=== PATIENT | female | born 1970 | race Caucasian/White ===

== ENCOUNTER 2016-08-23 07:45 | Emergency (ER) | payer BC ==
[~2016-08-23] VITALS: Ht 167.6 cm; Wt 85.0 kg
[~2016-08-23 07:45] MED LIST: ALBU8.5H3 INH; ASCO500C7 PO; CETI10CA PO; ESCI20TA PO; ESOM40CA PO; HYDR-762 PO; HYDR25CA PO; IBUP-1542 PO; LAMO100T83 PO; LAMO200T18 PO; LAMO25TB2 PO; LORA1TAB PO; PROP10TA6 PO; PROP20TA4 PO; RAMI2.5C36 PO; TIOT18CA IH
[2016-08-23 07:52] VITALS: Ht 167.6 cm; Wt 85.0 kg
[2016-08-23] MEDS ORDERED: FAMOTIDINE 20 MG TAB PO STA (08:08)
[2016-08-23] MEDS ORDERED: ONDANSETRON 4 MG INJ IV STA (08:08)
[2016-08-23] MEDS ORDERED: LIDOCAINE/MYLANTA 40 ML BTL PO STA (08:08)
[2016-08-23] MEDS ORDERED: morphine 4 MG/ML VIAL IV STA (08:08)
--- NOTE | 2016-08-23 08:15 | ERD ---
ER Documentation Chief Complaint Date/Time DATE: 08/23/16 TIME: 08:14 Chief Complaint abdominal pain with diarrhea x 1 week HPI This is a 45-year-old female that presents to the ER with generalized abdominal pain for the last week. Patient states that her abdominal pain began in the lower pelvic area and has now moved up to the epigastric area. Patient states that pain radiates up and down her abdomen. Patient tried taking antiacid however it did not help. Patient states that pain is severe and it woke her up at night. She denies any nausea or vomiting. Patient did have diarrhea however diarrhea has now resolved and states that she has been more constipated. Patient has a past medical history of diverticulosis. She denies any fevers or chills. She denies any urinary frequency or dysuria. ROS 12 point review of systems was done, all negative except per HPI. Medications Home Meds Active Scripts Simethicone* (Anti-Gas/80*) 80 Mg Tab.chew, 80 MG PO Q6H Y for DISTENSION/GAS/ BLOATING for 3 Days, TAB.CHEW Prov:WHITNEY PABLO 08/23/16 Famotidine* (Pepcid*) 20 Mg Tablet, 20 MG PO BID for 4 Days, TAB Prov:SAMYWHITNEY LUGO C 08/23/16 Hydrocodone/Acetaminophen ([place] 5-325 Tablet) 1 Each Tablet, 1 TAB PO Q6H Y for PAIN, #10 TAB Prov:WHITNEY PABLO 08/23/16 Ondansetron Hcl* (Zofran*) 4 Mg Tablet, 4 MG PO Q6H for NAUSEA AND/OR VOMITING, #30 TAB Prov:WHITNEY PABLO 08/23/16 Metronidazole* (Flagyl*) 500 Mg Tablet, 500 MG PO TID for 7 Days, TAB Prov:WHITNEY PABLO C 08/23/16 Ciprofloxacin Hcl* (Ciprofloxacin Hcl*) 500 Mg Tablet, 500 MG PO BID for 7 Days , TAB Prov:WHITNEY PABLO 08/23/16 Lamotrigine* (Lamictal* CHEW) 25 Mg Tab.disper, 25 MG PO DAILY for 30 Days, TAB Prov:MARIAH MARTINEZ MD 10/07/15 Lamotrigine* (Lamictal*) 200 Mg Tablet, 200 MG PO DAILY, #30 TAB Prov:MARIAH MARTINEZ MD 10/07/15 Escitalopram Oxalate* (Lexapro*) 20 Mg Tablet, 40 MG PO DAILY for 30 Days, #30 TAB Prov:MARIAH MARTINEZ MD 10/07/15 Propranolol Hcl* (Propranolol Hcl*) 10 Mg Tablet, 10 MG PO BID for 30 Days, TAB Prov:MARIAH MARTINEZ MD 10/07/15 Ramipril (Ramipril) 2.5 Mg Capsule, 2.5 MG PO DAILY, #30 CAP Prov:MARIAH MARTINEZ MD 10/07/15 Hydrocodone Bit-Acetaminophen* ([place]*) 10-325 Mg Tablet, 1 TAB PO Q6 Y for PAIN , #20 TAB Prov:JULIAN MUIR DO 10/04/15 Lorazepam* (Lorazepam*) 1 Mg Tablet, 1 MG PO BID for ANXIETY, #30 TAB Prov:JULIAN MUIR DO 10/04/15 Ramipril (Ramipril) 2.5 Mg Capsule, 2.5 MG PO DAILY, #30 CAP Prov:JULIAN MUIR DO 10/04/15 Hydroxyzine Pamoate* (Vistaril*) 25 Mg Capsule, 25 MG PO Q8, #10 CAP Prov:MALINI AKINS DO 09/09/15 Albuterol Sulfate* (Proair HFA*) 8.5 Gm Hfa.aer.ad, 2 PUFF INH Q4, #1 INHALER Prov:DONALD GA PA-C 08/16/15 Ibuprofen* (Ibuprofen*) 600 Mg Tablet, 600 MG PO Q6, #20 TAB Prov:ASIA MEDLEY PA-C 03/25/15 Reported Medications Esomeprazole Mag Trihydrate (Nexium) 40 Mg Capsule.dr, 40 MG PO DAILY, CAP 12/06/14 Tiotropium [place]* (Spiriva*) 18 Mcg Cap.w.dev, 1 INH IH DAILY, EA 12/06/14 Ramipril (Ramipril) 2.5 Mg Capsule, 2.5 MG PO DAILY, CAP 12/06/14 Propranolol Hcl* (Propranolol Hcl*) 20 Mg Tablet, 20 MG PO BID, TAB 10/29/14 Lamotrigine* (Lamictal*) 100 Mg Tablet, 200 MG PO DAILY, TAB 10/29/14 Escitalopram Oxalate* (Lexapro*) 20 Mg Tablet, 20 MG PO DAILY, TAB 10/29/14 Cetirizine Hcl* (Zyrtec*) 10 Mg Capsule, 10 MG PO DAILY, TAB 08/10/14 Ascorbic Acid* (Vitamin C*) 500 Mg Capsule.sa, 500 MG PO DAILY 10/09/11 Allergies Allergies: Coded Allergies: Sulfa (Sulfonamide Antibiotics) (Verified Allergy, Intermediate, 11/01/15) sulfamethoxazole (Verified Allergy, Mild, THROAT SWELLING, 11/01/15) Penicillins (Verified Allergy, Unknown, 11/01/15) Uncoded Allergies: PCN, SULFA (Adverse Reaction, Severe, BREATHING IMPAIREMENT, 12/14/14) PMhx/Soc Anesthesia Reaction: No Hx Neurological Disorder: No Hx Respiratory Disorders: No Hx Cardiac Disorders: Yes (HTN, ARRHYTMIA) Hx Psychiatric Problems: Yes (DEPRESSION, ANXIETY) Hx Alcohol Use: No Hx Substance Use: No Hx Tobacco Use: No Physical Exam Vitals Vital Signs Date Time Temp Pulse Resp B/P Pulse Ox O2 Delivery O2 Flow Rate FiO2 08/23/16 09:40 98.0 81 20 144/83 99 Room Air 08/23/16 07:52 97.5 84 20 159/81 100 Physical Exam GENERAL: The patient is well developed and appropriate for usual state of health , in no apparent distress. HEENT: Atraumatic. CHEST: Clear to auscultation bilaterally. There are no rales, wheezes or rhonchi. HEART: Regular rate and rhythm. No murmurs, clicks, rubs or gallops. ABDOMEN: Soft nondistended, patient is tender to palpation in the epigastric area, right upper quadrant, right lower quadrant. Good bowel sounds. No rebound or guarding. No gross peritonitis. No gross organomegaly or masses. No Lee sign or McBurney point tenderness. BACK: No midline or flank tenderness. SKIN: The skin is warm and dry. Result Diagram: 08/23/1628 08/23/1628 Results 24 hrs Laboratory Tests Test 08/23/16 08:28 White Blood Count 13.510^3/ul Red Blood Count 4.6310^6/ul Hemoglobin 14.8g/dl Hematocrit 42.9% Mean Corpuscular Volume 92.7fl Mean Corpuscular Hemoglobin 32.0pg Mean Corpuscular Hemoglobin Concent 34.5g/dl Red Cell Distribution Width 12.8% Platelet Count 05671^3/UL Mean Platelet Volume 9.5fl Neutrophils % 71.7% Lymphocytes % 16.7% Monocytes % 7.6% Eosinophils % 2.7% Basophils % 0.4% Nucleated Red Blood Cells % 0.0/100WBC Neutrophils # 9.710^3/ul Lymphocytes # 2.310^3/ul Monocytes # 1.010^3/ul Eosinophils # 0.410^3/ul Basophils # 0.110^3/ul Nucleated Red Blood Cells # 0.010^3/ul Urine Color LT. YELLOW Urine Clarity CLEAR Urine pH 6.5 Urine Specific [place] 1.010 Urine Ketones NEGATIVE Urine Nitrite NEGATIVE Urine Bilirubin NEGATIVE Urine Urobilinogen 0.2 E.U./dL Urine Leukocyte Esterase NEGATIVE Urine Hemoglobin NEGATIVE Urine Glucose NEGATIVE% Urine Total Protein NEGATIVE Sodium Level 140mmol/L Potassium Level 4.3mmol/L Chloride Level 102mmol/L Carbon Dioxide Level 27mmol/L Anion Gap 15 Blood Urea Nitrogen 7mg/dl Creatinine 0.63mg/dl Glucose Level 105mg/dl Calcium Level 9.1mg/dl Total Bilirubin 0.2mg/dl Direct Bilirubin 0.00mg/dl Indirect Bilirubin 0.2mg/dl Aspartate Amino Transf (AST/SGOT) 20IU/L Alanine Aminotransferase (ALT/SGPT) 30IU/L Alkaline Phosphatase 87IU/L Total Protein 8.0g/dl Albumin 4.7g/dl Globulin 3.30g/dl Albumin/Globulin Ratio 1.42 Lipase 42U/L Current Medications Medications (Trade) Dose Ordered Sig/Anabelle Route PRN Reason Start Time Stop Time Status Last Admin Dose Admin Morphine Sulfate (morphine) 4 mg ONCE STAT IV 08/23/16 08:08 08/23/16 08:10 DC 08/23/16 08:30 Ondansetron HCl (Zofran Inj) 4 mg ONCE STAT IV 08/23/16 08:08 08/23/16 08:10 DC 08/23/16 08:28 Famotidine (Pepcid) 20 mg ONCE STAT PO 08/23/16 08:08 08/23/16 08:10 DC 08/23/16 08:32 Miscellaneous Medication (Gi Cocktail (2)) 40 ml ONCE STAT PO 08/23/16 08:08 08/23/16 08:10 DC 08/23/16 08:32 Procedures/MDM Differential Diagnosis: GERD, gastritis, peptic ulcer disease, pancreatitis, cholecystitis, choledocholithiasis, biliary colic, cholangitis, Gczp-Lcdq-Hrints , ACS/TX, Pnuemonia , appendicitis, hernia, diverticulitis, UTI, constipation, ectopic , ovarian torsion, PID, Mittelschmerz, fibroid. This is a 45- year-old female presents to the ER with nausea vomiting and abdominal pain. Patient does have diverticulitis on CT scan. There is however no evidence of abscess. Patient's abdominal exam is benign with no peritoneal signs. Patient is afebrile and well-appearing. Her vomiting was controlled here in the ER. There is no evidence of electrolyte abnormalities. Patient will be sent home with Cipro, metronidazole, Zofran, [place]. Needs to follow-up with her primary care doctor within 1-2 days return to ER sooner if symptoms worsen. My medical decision making was shared with the patient she understands and agrees with plan. I discussed his case with my supervising physician Dr. Ayers, he agrees with my medical decision making. Departure Diagnosis: Primary Impression: Diverticulitis Condition: Stable WHITNEY PABLO Aug 23, 2016 08:15
[2016-08-23 08:47] LABS: ADD SCAN DIFF NO
[2016-08-23 08:52] LABS: BASOPHIL # 0.1 10^3/ul (0.0-0.1); BASOPHILS % 0.4 % (0.0-2.0); EOSINOPHILS # 0.4 10^3/ul (0.0-0.5); EOSINOPHILS % 2.7 % (0.0-7.0); HEMATOCRIT 42.9 % (37.0-47.0); HEMOGLOBIN 14.8 g/dl (12.0-16.0); LYMPHOCYTES # 2.3 10^3/ul (0.8-2.9); LYMPHOCYTES % 16.7 % (15.0-51.0); MEAN CORPUSCULAR HGB CONC 34.5 g/dl (32.0-37.0); MEAN CORPUSCULAR VOLUME 92.7 fl (82.0-101.0); MEAN PLATELET VOLUME 9.5 fl (7.4-10.4); MONOCYTES % 7.6 % (0.0-11.0); NEUTROPHIL # 9.7 10^3/ul (1.6-7.5); NEUTROPHILS % 71.7 % (39.0-77.0); PLATELET COUNT 304 10^3/UL (140-415); RED BLOOD COUNT 4.63 10^6/ul (4.20-5.40); RED CELL DISTRIBUTION WIDTH 12.8 % (11.5-14.5); WHITE BLOOD COUNT 13.5 10^3/ul (4.8-10.8)
[2016-08-23 08:54] LABS: ADD UMIC NO; URINE BILIRUBIN (Dip) NEGATIVE (NEGATIVE); URINE BLOOD (Dip) NEGATIVE (NEGATIVE); URINE COLOR LT. YELLOW (YELLOW); URINE GLUCOSE (Dip) NEGATIVE (NEGATIVE); URINE KETONES (Dip) NEGATIVE (NEGATIVE); URINE LEUKOCYTE ESTERASE (Dip) NEGATIVE (NEGATIVE); URINE NITRITE (Dip) NEGATIVE (NEGATIVE); URINE TOTAL PROTEIN (Dip) NEGATIVE (NEGATIVE); URINE UROBILINOGEN (Dip) 0.2 E.U./dL (0.1-1.0)
[2016-08-23 08:59] LABS: ALBUMIN 4.7 g/dl (3.3-4.9); POTASSIUM 4.3 mmol/L (3.5-5.1)
--- NOTE | 2016-08-23 09:00 | RADRPT ---
PROCEDURE: CT Abdomen and Pelvis without contrast. CLINICAL INDICATION: Abdominal pain. TECHNIQUE: CT scan of the abdomen and pelvis without contrast was performed on a multidetector hig h-resolution CT scanner. The patient was scanned without intravenous contrast. Coronal and sagittal reformatted images were obtained from the axial source images. Images were reviewed on a high-resol [employer] PACS workstation. One or more of the following dose reduction techniques were used: Automated exposure control, adjustment of the mA and/or kV according to patient size, use of iterative recon struction technique. The total exam CTDI equals 18.51 mGy and the total exam DLP equals 1044.37 mGy -cm. COMPARISON: Correlation with ultrasound from 10/20/2014. FINDINGS: CT abdomen: The lung bases are clear. The heart size is normal, without pericardial thickening or effusion. The liver is normal in size and density without focal mass or intrahepatic biliary dilatation. The spleen is normal in size and homogeneous in density. The stomach is grossly unremarkable. The panc reas as visualized is normal. The gallbladder and biliary tree are unremarkable and there is no kavya dence for biliary dilatation. The adrenal glands are symmetric and normal. No renal calculus or o bstructive uropathy or mass lesion is seen. There is mild bilateral renal pelvis fullness without fr ank hydronephrosis. Inflammatory changes are seen at the inferior pole of the right kidney as descr ibed below. The aorta is of normal caliber. There is no retroperitoneal lymphadenopathy. The yadira hepatis reg ion is clear. The small bowel and mesentery, as visualized, are unremarkable. There is an inflamed diverticulum in the distal ascending colon, near the hepatic flexure (image 81, series 3). There is surrounding peridiverticular fat stranding and inflammatory changes which extend to the inferior po le of the right kidney where there is a 1.1 cm exophytic hypodense lesion likely representing a cyst which appears to also be inflamed. There is no evidence of intraperitoneal free air or abscess. CT pelvis: The small bowel loops situated within the pelvis are unremarkable. The uterus is enlarged measuring 10.3 x 10 and 2 x 8.8 cm and demonstrates diffusely heterogeneous attenuation with some areas of fo katerina calcification. The endometrial canal appears to be displaced anteriorly. The pelvic sidewalls and inguinal regions are clear. The sigmoid colon and rectum are unremarkable. The appendix is norm al. No mass, lymphadenopathy, or free fluid is seen. The surrounding osseous structures are unremarkable. No osteolytic or osteoblastic lesion is detec nico. IMPRESSION: 1. Acute diverticulitis involving the distal ascending colon with inflammatory changes extending to the inferior pole of the right kidney as described above and pictured below, concerning for possibl e associated pyelonephritis. Correlate with urinary analysis. 2. Enlarged, bulbous appearing uterus may be secondary to a large posterior uterine body fibroid wi th cystic change versus adenomyosis. Pelvic MRI with contrast may be useful for further evaluation as clinically indicated. RPTAT: EE .Rocco Flroes MD, MD Date Time Electronically viewed and signed by .Rocco Flores MD, MD on 08/23/2016 09:00 .A/
[2016-08-23 09:01] LABS: BILIRUBIN,INDIRECT 0.2 mg/dl (0-1.1); BILIRUBIN,TOTAL 0.2 mg/dl (0.2-1.3); CREATININE 0.63 mg/dl (0.44-1.00)
[2016-08-23 09:02] LABS: ALBUMIN/GLOBULIN RATIO 1.42; CALCIUM 9.1 mg/dl (8.4-10.2)
[2016-08-23] MEDS ORDERED: CIPR500T4 PO (09:27)
[2016-08-23] MEDS ORDERED: METR500T PO (09:28)
[2016-08-23] MEDS ORDERED: HYDR-906 PO (09:28)
[2016-08-23] MEDS ORDERED: ONDA4TAB8 PO (09:28)
[2016-08-23] MEDS ORDERED: FAMO-18 PO (09:33)
[2016-08-23] MEDS ORDERED: SIME80TA PO (09:33)
[2016-08-23 09:40] VITALS: BP 144/83; PULSE 81; RESP 20; TEMP 98
== END 2016-08-23 09:47 | disposition home or self-care (01) ==
LOC: FTE 07:45
DX: K57.92 Diverticulitis of intestine, part unspecified, without perforation or abscess without bleeding (principal); R10.2 Pelvic and perineal pain; I10 Essential (primary) hypertension
CPT/HCPCS: 36415; 74176; 80053; 81003; 83690; 85025; 96374; 96375; 99285; J2270; J2405; Z7610

== ENCOUNTER 2016-09-04 17:29 | Emergency (ER) | payer MEDICARE, BC ==
[~2016-09-04] VITALS: Wt 80.0 kg
[~2016-09-04 17:29] MED LIST changes: +CIPR500T4 PO; +FAMO-18 PO; +HYDR-906 PO; +METR500T PO; +ONDA4TAB8 PO; +SIME80TA PO
[2016-09-04 18:48] LABS: ADD SCAN DIFF NO
[2016-09-04 18:51] LABS: ADD UMIC NO; URINE BILIRUBIN (Dip) NEGATIVE (NEGATIVE); URINE BLOOD (Dip) NEGATIVE (NEGATIVE); URINE COLOR LT. YELLOW (YELLOW); URINE GLUCOSE (Dip) NEGATIVE (NEGATIVE); URINE KETONES (Dip) NEGATIVE (NEGATIVE); URINE LEUKOCYTE ESTERASE (Dip) NEGATIVE (NEGATIVE); URINE NITRITE (Dip) NEGATIVE (NEGATIVE); URINE TOTAL PROTEIN (Dip) NEGATIVE (NEGATIVE); URINE UROBILINOGEN (Dip) 0.2 E.U./dL (0.1-1.0)
[2016-09-04 18:51] LABS: BASOPHIL # 0.1 10^3/ul (0.0-0.1); BASOPHILS % 0.5 % (0.0-2.0); EOSINOPHILS # 0.3 10^3/ul (0.0-0.5); EOSINOPHILS % 3.6 % (0.0-7.0); HEMATOCRIT 43.1 % (37.0-47.0); HEMOGLOBIN 14.6 g/dl (12.0-16.0); LYMPHOCYTES # 2.4 10^3/ul (0.8-2.9); LYMPHOCYTES % 25.5 % (15.0-51.0); MEAN CORPUSCULAR HGB CONC 33.9 g/dl (32.0-37.0); MEAN CORPUSCULAR VOLUME 94.5 fl (82.0-101.0); MEAN PLATELET VOLUME 9.3 fl (7.4-10.4); MONOCYTE # 0.8 10^3/ul (0.3-0.9); MONOCYTES % 8.3 % (0.0-11.0); NEUTROPHIL # 5.7 10^3/ul (1.6-7.5); NEUTROPHILS % 61.2 % (39.0-77.0); PLATELET COUNT 320 10^3/UL (140-415); RED BLOOD COUNT 4.56 10^6/ul (4.20-5.40); RED CELL DISTRIBUTION WIDTH 12.8 % (11.5-14.5); WHITE BLOOD COUNT 9.3 10^3/ul (4.8-10.8)
[2016-09-04] MEDS ORDERED: SOD CHLORIDE 0.9% 100 ML ONE (18:58)
[2016-09-04] MEDS ORDERED: IOHEXOL 300MG/ML 150 ML BTL ONE (18:58)
[2016-09-04 19:22] LABS: ALBUMIN/GLOBULIN RATIO 1.48; BILIRUBIN,INDIRECT 0.2 mg/dl (0-1.1); BILIRUBIN,TOTAL 0.2 mg/dl (0.2-1.3); CREATININE 0.62 mg/dl (0.44-1.00); TOTAL PROTEIN 6.7 g/dl (6.1-8.1)
[2016-09-04 19:23] LABS: CALCIUM 8.7 mg/dl (8.4-10.2)
[2016-09-04] MEDS ORDERED: ONDANSETRON 4 MG INJ IV STA (20:29)
[2016-09-04] MEDS ORDERED: morphine 10 MG INJ IV ONE (20:30)
--- NOTE | 2016-09-04 21:05 | RADRPT ---
PROCEDURE: CT abdomen and pelvis with contrast. CLINICAL INDICATION: Abdominal pain. TECHNIQUE: CT scan of the abdomen and pelvis with contrast was performed. Coronal and sagittal im ages were also reformatted. 100 cc Omnipaque-300 intravenous contrast was administered without comp lication. Total exam CTDIvol = 18.24 mGy and DLP = 1109.06 mGy-cm. COMPARISON: CT 08/23/2016 FINDINGS: Visualized lower thorax: The lung bases are clear. There is no evidence for pleural effusion. Liver, gallbladder, pancreas and spleen: Normal hepatic contour, attenuation in size. There is no evidence for liver mass or ductal dilatation. The gallbladder is unremarkable. No common bile duct dilatation is evident. The pancreas is normal. The spleen is normal, not enlarged. Adrenal glands and genitourinary system: The adrenal glands are normal bilaterally. The kidneys ar e normal in size, contour and attenuation with no evidence for masses, calculi or hydronephrosis. T he ureters are unremarkable. The urinary bladder shows no abnormality. Enlarged heterogeneous leio myomatous uterus is again noted, the heterogeneous enhancement within the dominant posterior fundal subserosal mass cannot exclude a malignant transformation, the abnormality estimated at 10 x 8 cm. Bilateral ovarian/adnexal cysts are again suggested. There is no evidence of free fluid in the cul- de-sac. Gastrointestinal system: The stomach, small bowel and large intestine are normal in caliber. There is no evidence of obstruction, ileus or inflammation. The appendix and surrounding fat are normal. Diverticular disease of the ascending colon is again noted but there has been interval resolution o f pericolonic inflammatory stranding compared to the previous study consistent with resolved diverti culitis. No new areas of diverticulitis are present and there is no colonic wall thickening to sugg est colitis. Peritoneum, retroperitoneum, vessels and lymph nodes: The abdominal aorta is normal in caliber. Th ere is no evidence for atherosclerotic calcification. Inferior vena cava is normal in caliber. The re is no evidence for adenopathy. The peritoneal cavity is normal with no evidence for ascites. No pneumoperitoneum is present Osseous structures and musculoskeletal system: There is no evidence for acute osseous abnormality o r muscular pathology. No subcutaneous abnormalities are present. RPTAT:HJJR IMPRESSION: 1. Interval resolution of distal ascending colonic segment diverticulitis as compared to the study of 08/23/2016, diffuse colonic diverticular disease is again noted without acute intra-abdominal or intrapelvic pathology. 2. Enlarged leiomyomatous uterus with heterogeneous enhancement in the dominant posterior fundal monsalve bserosal mass, uterine malignancy is difficult to entirely exclude. There is no evidence of pelvic adenopathy. Follow-up evaluation potentially with pelvic MRI is again suggested. 3. Normal appendix. 4. Bilateral simple appearing ovarian/adnexal cysts. Physician Mira Date Time Electronically viewed and signed by Enoch Silver Physician on 09/04/2016 21:05 JR/
[2016-09-04] MEDS ORDERED: POLY17PO6 PO (21:34)
[2016-09-04] MEDS ORDERED: TRAM50TA2 PO (21:34)
[2016-09-04] MEDS ORDERED: DOCU-144 PO (21:34)
--- NOTE | 2016-09-04 21:51 | ERD ---
ER Documentation Chief Complaint Date/Time DATE: 09/04/16 TIME: 21:48 Chief Complaint CONSTIPATION FOR THE PAST WEEK. LEFT LOWER QUAD PAIN. NO N/V HPI This is a 45-year-old female that presents to the ER with constipation for the last week. Patient has left lower quadrant pain which developed 2 days ago. It radiates throughout her entire abdomen. Patient was recently diagnosed with diverticulitis and she took her medications. Patient denies any fevers or chills. She denies any diarrhea. Constipation is described as patient only having small bowel movements. Patient denies any blood in her stool. She denies any urinary frequency or dysuria. ROS 12 point review of systems was done, all negative except per HPI. Medications Home Meds Active Scripts Docusate Sodium* (Colace*) 100 Mg Capsule, 100 MG PO TID, #30 CAP Prov:WHITNEY PABLO 09/04/16 Tramadol HCl (Tramadol HCl) 50 Mg Tablet, 50 MG PO Q4 Y for PAIN, #20 TAB Prov:WHITNEY APBLO 09/04/16 Polyethylene Glycol* (Miralax*) 17 Gm Powd.pack, 17 GM PO DAILY, #7 Prov:WHITNEY PABLO 09/04/16 Simethicone* (Anti-Gas/80*) 80 Mg Tab.chew, 80 MG PO Q6H Y for DISTENSION/GAS/ BLOATING for 3 Days, TAB.CHEW Prov:WHITNEY PABLO 08/23/16 Famotidine* (Pepcid*) 20 Mg Tablet, 20 MG PO BID for 4 Days, TAB Prov:WHITNEY PABLO 08/23/16 Hydrocodone/Acetaminophen ([place] 5-325 Tablet) 1 Each Tablet, 1 TAB PO Q6H Y for PAIN, #10 TAB Prov:WHITNEY PABLO 08/23/16 Ondansetron Hcl* (Zofran*) 4 Mg Tablet, 4 MG PO Q6H for NAUSEA AND/OR VOMITING, #30 TAB Prov:WHITNEY PABLO 08/23/16 Metronidazole* (Flagyl*) 500 Mg Tablet, 500 MG PO TID for 7 Days, TAB Prov:WHITNEY PABLO 08/23/16 Ciprofloxacin Hcl* (Ciprofloxacin Hcl*) 500 Mg Tablet, 500 MG PO BID for 7 Days , TAB Prov:WHITNEY PABLO 08/23/16 Lamotrigine* (Lamictal* CHEW) 25 Mg Tab.disper, 25 MG PO DAILY for 30 Days, TAB Prov:MARIAH MARTINEZ MD 10/07/15 Lamotrigine* (Lamictal*) 200 Mg Tablet, 200 MG PO DAILY, #30 TAB Prov:MARIAH MARTINEZ MD 10/07/15 Escitalopram Oxalate* (Lexapro*) 20 Mg Tablet, 40 MG PO DAILY for 30 Days, #30 TAB Prov:MARIAH MARTINEZ MD 10/07/15 Propranolol Hcl* (Propranolol Hcl*) 10 Mg Tablet, 10 MG PO BID for 30 Days, TAB Prov:MARIAH MARTINEZ MD 10/07/15 Ramipril (Ramipril) 2.5 Mg Capsule, 2.5 MG PO DAILY, #30 CAP Prov:MARIAH MARTINEZ MD 10/07/15 Hydrocodone Bit-Acetaminophen* ([place]*) 10-325 Mg Tablet, 1 TAB PO Q6 Y for PAIN , #20 TAB Prov:JULIAN MUIR DO 10/04/15 Lorazepam* (Lorazepam*) 1 Mg Tablet, 1 MG PO BID for ANXIETY, #30 TAB Prov:JULIAN MUIR DO 10/04/15 Ramipril (Ramipril) 2.5 Mg Capsule, 2.5 MG PO DAILY, #30 CAP Prov:JULIAN MUIR DO 10/04/15 Hydroxyzine Pamoate* (Vistaril*) 25 Mg Capsule, 25 MG PO Q8, #10 CAP Prov:MALINI AKINS DO 09/09/15 Albuterol Sulfate* (Proair HFA*) 8.5 Gm Hfa.aer.ad, 2 PUFF INH Q4, #1 INHALER Prov:DONALD GA PA-C 08/16/15 Ibuprofen* (Ibuprofen*) 600 Mg Tablet, 600 MG PO Q6, #20 TAB Prov:ASIA MEDLEY PA-C 03/25/15 Reported Medications Esomeprazole Mag Trihydrate (Nexium) 40 Mg Capsule.dr, 40 MG PO DAILY, CAP 12/06/14 Tiotropium [place]* (Spiriva*) 18 Mcg Cap.w.dev, 1 INH IH DAILY, EA 12/06/14 Ramipril (Ramipril) 2.5 Mg Capsule, 2.5 MG PO DAILY, CAP 12/06/14 Propranolol Hcl* (Propranolol Hcl*) 20 Mg Tablet, 20 MG PO BID, TAB 10/29/14 Lamotrigine* (Lamictal*) 100 Mg Tablet, 200 MG PO DAILY, TAB 10/29/14 Escitalopram Oxalate* (Lexapro*) 20 Mg Tablet, 20 MG PO DAILY, TAB 10/29/14 Cetirizine Hcl* (Zyrtec*) 10 Mg Capsule, 10 MG PO DAILY, TAB 08/10/14 Ascorbic Acid* (Vitamin C*) 500 Mg Capsule.sa, 500 MG PO DAILY 10/09/11 Allergies Allergies: Coded Allergies: Sulfa (Sulfonamide Antibiotics) (Verified Allergy, Intermediate, 11/01/15) sulfamethoxazole (Verified Allergy, Mild, THROAT SWELLING, 11/01/15) Penicillins (Verified Allergy, Unknown, 11/01/15) Uncoded Allergies: PCN, SULFA (Adverse Reaction, Severe, BREATHING IMPAIREMENT, 12/14/14) PMhx/Soc Anesthesia Reaction: No Hx Neurological Disorder: No Hx Respiratory Disorders: No Hx Cardiac Disorders: Yes (HTN, ARRHYTMIA) Hx Psychiatric Problems: Yes (DEPRESSION, ANXIETY) Hx Alcohol Use: No Hx Substance Use: No Hx Tobacco Use: No Smoking Status: Never smoker Physical Exam Vitals Vital Signs Date Time Temp Pulse Resp B/P Pulse Ox O2 Delivery O2 Flow Rate FiO2 09/04/16 17:38 98.6 80 21 166/82 98 Physical Exam GENERAL: The patient is well developed and appropriate for usual state of health , in no apparent distress. HEENT: Atraumatic. CHEST: Clear to auscultation bilaterally. There are no rales, wheezes or rhonchi. HEART: Regular rate and rhythm. No murmurs, clicks, rubs or gallops. ABDOMEN: Soft, nontender and nondistended. Good bowel sounds. No rebound or guarding. No gross peritonitis. No gross organomegaly or masses. No Lee sign or McBurney point tenderness. BACK: No midline or flank tenderness. NEURO: Alert and oriented. Result Diagram: 09/04/16 1835 09/04/16 1835 Results 24 hrs Laboratory Tests Test 09/04/16 18:30 09/04/16 18:35 Urine Color LT. YELLOW Urine Clarity CLEAR Urine pH 6.5 Urine Specific [place] <=1.005 Urine Ketones NEGATIVE Urine Nitrite NEGATIVE Urine Bilirubin NEGATIVE Urine Urobilinogen 0.2 E.U./dL Urine Leukocyte Esterase NEGATIVE Urine Hemoglobin NEGATIVE Urine Glucose NEGATIVE% Urine Total Protein NEGATIVE White Blood Count 9.310^3/ul Red Blood Count 4.5610^6/ul Hemoglobin 14.6g/dl Hematocrit 43.1% Mean Corpuscular Volume 94.5fl Mean Corpuscular Hemoglobin 32.0pg Mean Corpuscular Hemoglobin Concent 33.9g/dl Red Cell Distribution Width 12.8% Platelet Count 67558^3/UL Mean Platelet Volume 9.3fl Neutrophils % 61.2% Lymphocytes % 25.5% Monocytes % 8.3% Eosinophils % 3.6% Basophils % 0.5% Nucleated Red Blood Cells % 0.0/100WBC Neutrophils # 5.710^3/ul Lymphocytes # 2.410^3/ul Monocytes # 0.810^3/ul Eosinophils # 0.310^3/ul Basophils # 0.110^3/ul Nucleated Red Blood Cells # 0.010^3/ul Sodium Level 139mmol/L Potassium Level 4.0mmol/L Chloride Level 101mmol/L Carbon Dioxide Level 28mmol/L Anion Gap 14 Blood Urea Nitrogen 5mg/dl Creatinine 0.62mg/dl Glucose Level 86mg/dl Calcium Level 8.7mg/dl Total Bilirubin 0.2mg/dl Direct Bilirubin 0.00mg/dl Indirect Bilirubin 0.2mg/dl Aspartate Amino Transf (AST/SGOT) 17IU/L Alanine Aminotransferase (ALT/SGPT) 24IU/L Alkaline Phosphatase 74IU/L Total Protein 6.7g/dl Albumin 4.0g/dl Globulin 2.70g/dl Albumin/Globulin Ratio 1.48 Lipase 63U/L Current Medications Medications (Trade) Dose Ordered Sig/Anabelle Route PRN Reason Start Time Stop Time Status Last Admin Dose Admin IV Flush 10 ml 10 ml STK-MED ONCE .ROUTE 09/04/16 18:58 09/04/16 18:59 DC 09/04/16 19:39 Sodium Chloride (NS) 100 ml @ ud STK-MED ONCE .ROUTE 09/04/16 18:58 09/04/16 18:59 DC 09/04/16 19:40 Iohexol (Omnipaque 300mg/ ml) 150 ml STK-MED ONCE .ROUTE 09/04/16 18:58 09/04/16 18:59 DC 09/04/16 19:40 Morphine Sulfate (morphine) 6 mg ONCE ONCE IV 09/04/16 20:30 09/04/16 20:31 DC 09/04/16 20:40 Ondansetron HCl (Zofran Inj) 4 mg ONCE STAT IV 09/04/16 20:29 09/04/16 20:30 DC 09/04/16 20:39 Procedures/MDM Differential diagnosis includes but is not limited to appendicitis, hernia, UTI , constipation, ectopic , ovarian torsion, PID, Mittelschmerz, fibroid , reticulitis. This is a 45-year-old female presents to the ER with constipation. At this time there is no evidence of obstruction. Suspicion for abscess secondary to diverticulitis is low, as diverticulitis has resolved in comparison to the last CT that was done. Patient is afebrile and well- appearing. She will be sent home with MiraLAX, Colace, tramadol. I advised patient to see a GI doctor for her new changes in bowel. Patient would benefit from colonoscopy. I shared my medical decision making with the patient she understands and agrees with plan Departure Diagnosis: Primary Impression: Abdominal pain Condition: Stable Patient Instructions: Abdominal Pain, Treating Constipation Referrals: NADER HUA MD (PCP) Additional Instructions: Call your primary care doctor TOMORROW for an appointment during the next 1-2 days.See the doctor sooner or return here if your condition worsens before your appointment time. WHITNEY PABLO Sep 04, 2016 21:51
== END 2016-09-04 21:56 | disposition home or self-care (01) ==
LOC: FTE 17:29
DX: R10.32 Left lower quadrant pain (principal); I10 Essential (primary) hypertension
CPT/HCPCS: 36415; 74177; 80053; 81003; 83690; 85025; 96374; 96375; 99285; J2270; J2405; Q9967

== ENCOUNTER 2016-09-11 12:40 | Emergency (ER) | payer MEDICARE, BC ==
[~2016-09-11] VITALS: Wt 79.0 kg
[~2016-09-11 12:40] MED LIST changes: +DOCU-144 PO; +POLY17PO6 PO; +TRAM50TA2 PO
[2016-09-11] MEDS ORDERED: LIDOCAINE/MYLANTA 40 ML BTL PO STA (13:35)
[2016-09-11] MEDS ORDERED: BELLADONNA/PHENOBARBITAL TAB PO STA (13:35)
[2016-09-11] MEDS ORDERED: LACT1CAP17 PO (13:38)
[2016-09-11] MEDS ORDERED: ESOM40SU PO (13:38)
[2016-09-11] MEDS ORDERED: OXYCODONE/ACETAMINOPHEN (5/325) TAB PO ONE (14:00)
--- NOTE | 2016-09-11 15:01 | ERD ---
ER Documentation Chief Complaint Date/Time DATE: 09/11/16 TIME: 14:57 Chief Complaint abd pain x 3 weeks ddenies n/v HPI 45-year-old woman with a history of diverticulitis presents with epigastric abdominal discomfort, belching, burning, and radiation of the pain upward to her throat. She also has a history of gastritis and states a few weeks ago she was prescribed famotidine which improved her symptoms although not as well as omeprazole which is what she used to use. She states her diverticulitis symptoms have improved and states she no longer has lower quadrant abdominal pain, no blood per rectum, no melena, no diarrhea, no fevers or chills. She denies chest pain or shortness of breath. ROS All systems reviewed and are negative except as per history of present illness. Medications Home Meds Active Scripts Lactobac Cmb #3/Fos/Pantethine (PROBIOTIC & ACIDOPHILUS CAP) 1 Each Capsule, 1 EACH PO DAILY, #30 CAP Prov:TONY MCCLURE MD 09/11/16 Esomeprazole Magnesium (Nexium) 40 Mg Suspdr.pkt, 40 MG PO DAILY, #30 Prov:TONY MCCLURE MD 09/11/16 Docusate Sodium* (Colace*) 100 Mg Capsule, 100 MG PO TID, #30 CAP Prov:WHITNEY PABLO 09/04/16 Tramadol HCl (Tramadol HCl) 50 Mg Tablet, 50 MG PO Q4 Y for PAIN, #20 TAB Prov:WHITNEY PABLO 09/04/16 Polyethylene Glycol* (Miralax*) 17 Gm Powd.pack, 17 GM PO DAILY, #7 Prov:WHITNEY PABLO 09/04/16 Simethicone* (Anti-Gas/80*) 80 Mg Tab.chew, 80 MG PO Q6H Y for DISTENSION/GAS/ BLOATING for 3 Days, TAB.CHEW Prov:WHITNEY PABLO 08/23/16 Famotidine* (Pepcid*) 20 Mg Tablet, 20 MG PO BID for 4 Days, TAB Prov:WHITNEY PABLO 08/23/16 Hydrocodone/Acetaminophen ([place] 5-325 Tablet) 1 Each Tablet, 1 TAB PO Q6H Y for PAIN, #10 TAB Prov:WHITNEY PABLO 08/23/16 Ondansetron Hcl* (Zofran*) 4 Mg Tablet, 4 MG PO Q6H for NAUSEA AND/OR VOMITING, #30 TAB Prov:SAMYWHITNEY LUGO Shaun 08/23/16 Metronidazole* (Flagyl*) 500 Mg Tablet, 500 MG PO TID for 7 Days, TAB Prov:WHITNEY PABLO 08/23/16 Ciprofloxacin Hcl* (Ciprofloxacin Hcl*) 500 Mg Tablet, 500 MG PO BID for 7 Days , TAB Prov:SAMY,WHITNEY C 08/23/16 Lamotrigine* (Lamictal* CHEW) 25 Mg Tab.disper, 25 MG PO DAILY for 30 Days, TAB Prov:MARIAH MARTINEZ MD 10/07/15 Lamotrigine* (Lamictal*) 200 Mg Tablet, 200 MG PO DAILY, #30 TAB Prov:MARIAH MARTINEZ MD 10/07/15 Escitalopram Oxalate* (Lexapro*) 20 Mg Tablet, 40 MG PO DAILY for 30 Days, #30 TAB Prov:MARIAH MARTINEZ MD 10/07/15 Propranolol Hcl* (Propranolol Hcl*) 10 Mg Tablet, 10 MG PO BID for 30 Days, TAB Prov:MARIAH MARTINEZ MD 10/07/15 Ramipril (Ramipril) 2.5 Mg Capsule, 2.5 MG PO DAILY, #30 CAP Prov:MARIAH MARTINEZ MD 10/07/15 Hydrocodone Bit-Acetaminophen* ([place]*) 10-325 Mg Tablet, 1 TAB PO Q6 Y for PAIN , #20 TAB Prov:JULIAN MUIR DO 10/04/15 Lorazepam* (Lorazepam*) 1 Mg Tablet, 1 MG PO BID for ANXIETY, #30 TAB Prov:JULIAN MUIR DO 10/04/15 Ramipril (Ramipril) 2.5 Mg Capsule, 2.5 MG PO DAILY, #30 CAP Prov:JULIAN MUIR DO 10/04/15 Hydroxyzine Pamoate* (Vistaril*) 25 Mg Capsule, 25 MG PO Q8, #10 CAP Prov:MALINI AKINS DO 09/09/15 Albuterol Sulfate* (Proair HFA*) 8.5 Gm Hfa.aer.ad, 2 PUFF INH Q4, #1 INHALER Prov:DONALD GA PA-C 08/16/15 Ibuprofen* (Ibuprofen*) 600 Mg Tablet, 600 MG PO Q6, #20 TAB Prov:ASIA MEDLEY PA-C 03/25/15 Reported Medications Esomeprazole Mag Trihydrate (Nexium) 40 Mg Capsule.dr, 40 MG PO DAILY, CAP 12/06/14 Tiotropium [place]* (Spiriva*) 18 Mcg Cap.w.dev, 1 INH IH DAILY, EA 12/06/14 Ramipril (Ramipril) 2.5 Mg Capsule, 2.5 MG PO DAILY, CAP 12/06/14 Propranolol Hcl* (Propranolol Hcl*) 20 Mg Tablet, 20 MG PO BID, TAB 10/29/14 Lamotrigine* (Lamictal*) 100 Mg Tablet, 200 MG PO DAILY, TAB 10/29/14 Escitalopram Oxalate* (Lexapro*) 20 Mg Tablet, 20 MG PO DAILY, TAB 10/29/14 Cetirizine Hcl* (Zyrtec*) 10 Mg Capsule, 10 MG PO DAILY, TAB 08/10/14 Ascorbic Acid* (Vitamin C*) 500 Mg Capsule.sa, 500 MG PO DAILY 10/09/11 Allergies Allergies: Coded Allergies: Sulfa (Sulfonamide Antibiotics) (Verified Allergy, Intermediate, 11/01/15) sulfamethoxazole (Verified Allergy, Mild, THROAT SWELLING, 11/01/15) Penicillins (Verified Allergy, Unknown, 11/01/15) Uncoded Allergies: PCN, SULFA (Adverse Reaction, Severe, BREATHING IMPAIREMENT, 12/14/14) PMhx/Soc Diverticulitis, gastritis, hypertension Anesthesia Reaction: No Hx Neurological Disorder: No Hx Respiratory Disorders: No Hx Cardiac Disorders: Yes (HTN, ARRHYTMIA) Hx Psychiatric Problems: Yes (DEPRESSION, ANXIETY) Hx Alcohol Use: No Hx Substance Use: No Hx Tobacco Use: No Smoking Status: Current every day smoker FmHx Family History: No diabetes Physical Exam Vitals Vital Signs Date Time Temp Pulse Resp B/P Pulse Ox O2 Delivery O2 Flow Rate FiO2 09/11/16 12:49 98.0 71 18 145/91 99 Physical Exam GENERAL: Well-developed, well-nourished, well-hydrated, mild discomfort HEENT: Moist mucous membranes, pink conjunctiva, no cervical spine tenderness or step-off deformities, no goiter, no jaundice or icterus, extraocular movements intact without pain. No submandibular induration, and no pharyngeal erythema NEURO: Alert and oriented 3, cranial nerves II through XII intact bilaterally, pupils equal round reactive to light, no focal deficits or facial asymmetry, sensation intact distally Strength 5/5 in upper and lower extremities bilaterally CARDIAC: Regular rate and rhythm, no murmurs rubs or gallops LUNGS: Clear bilaterally no wheezing crackles or stridor ABDOMEN: Soft nontender, no guarding, no rigidity, no rebound, no psoas sign no obturator sign. Normoactive bowel sounds SKIN: Warm and dry to touch, no abrasions, contusions, or hematomas, no lacerations, no ecchymosis, no target lesions, and without ulcers EXTREMITIES: No clubbing cyanosis or edema, calves are bilaterally symmetrical, no Homans sign, no popliteal cord sign. Distal pulses equal and bilateral PSYCH: Normal affect without agitation or irritability Results 24 hrs Current Medications Medications (Trade) Dose Ordered Sig/Anabelle Route PRN Reason Start Time Stop Time Status Last Admin Dose Admin Oxycodone/ Acetaminophen (Percocet (5/ 325)) 1 tab ONCE ONCE PO 09/11/16 14:00 09/11/16 14:00 DC 09/11/16 13:42 Miscellaneous Medication (Gi Cocktail (2)) 40 ml ONCE STAT PO 09/11/16 13:35 09/11/16 13:37 DC 09/11/16 13:42 [place]/ Phenobarbital () 2 tab ONCE STAT PO 09/11/16 13:35 09/11/16 13:37 DC 09/11/16 13:43 Procedures/MDM Patient was recently treated for acute diverticulitis and had multiple different antibiotics so I did recommend 1 month course of daily probiotic therapy, also recommended proton pump inhibitor therapy which is what use to help her symptoms. I administered 1 dose of Percocet here p.o. and Maalox suspension 30 cc p.o. I will defer opioid analgesics to her PMD. Differential diagnoses considered, included but not limited to acute coronary syndrome, pulmonary embolism, aortic dissection, abdominal aortic aneurysm, sepsis, stroke, meningitis, encephalitis, pneumonia, appendicitis, cholecystitis , bowel obstruction, pyelonephritis, nephrolithiasis, cystitis, as well as metabolic, hematologic, and electrolyte abnormalities. As well as abscess, cellulitis, fractures, and dislocations. Patient feels much better at this time, and vital signs are normal, symptoms have improved. I did give strict instructions to return to the ED if symptoms continue or worsen, patient will otherwise follow-up with primary care physician. Patient understood instructions and agreed to plan. Departure Diagnosis: Primary Impression: Gastritis Gastritis type: unspecified gastritis Chronicity: acute Gastritis bleeding : without bleeding Qualified Code: K29.00 - Acute gastritis without hemorrhage, unspecified gastritis type Condition: Good Patient Instructions: Gastritis Vs. Ulcer TONY MCCLURE MD Sep 11, 2016 15:01
== END 2016-09-11 13:55 | disposition home or self-care (01) ==
LOC: FTE 12:40
DX: K29.00 Acute gastritis without bleeding (principal); I10 Essential (primary) hypertension; F17.210 Nicotine dependence, cigarettes, uncomplicated
CPT/HCPCS: 99283

== ENCOUNTER 2016-11-12 17:24 | Emergency (ER) | payer MEDICARE, BC ==
[~2016-11-12] VITALS: Ht 162.6 cm; Wt 89.0 kg
[~2016-11-12 17:24] MED LIST changes: +ESOM40SU PO; +LACT1CAP17 PO
[2016-11-12 17:26] VITALS: Ht 162.6 cm; Wt 89.0 kg
[2016-11-12] MEDS ORDERED: ELIM TOP (17:41)
[2016-11-12] MEDS ORDERED: BEN25 PO (17:42)
--- NOTE | 2016-11-12 17:52 | ERD ---
ER Documentation Chief Complaint Date/Time DATE: 11/12/16 TIME: 17:47 Chief Complaint BED BUG BITES HPI This patient is a 46-year-old female presenting to the emergency department with complaint of bed bug bites. Patient was in mental health, and she states she was exposed to the bugs. Symptoms have been ongoing for 2 weeks. She reports bites to her bilateral upper and lower extremities but not in the webbing of the fingers or toes. Symptoms are worsening. Symptoms are currently mild. Associated symptoms include itching. She additionally mentions some mild wheezing on exertion intermittently, associated with her history of asthma. The patient does have an inhaler at home. The patient denies shortness of breath, chest pain, fevers, chills, nausea, vomiting, diarrhea, or other symptoms. ROS All systems reviewed and are negative except as per history of present illness. Medications Home Meds Active Scripts Diphenhydramine Hcl* (Benadryl*) 25 Mg Cap, 25 MG PO Q6H Y for ITCHING, #15 CAP Prov:SYEDA DESOUZA PA-C 11/12/16 Permethrin* (Elimite*) 5% Cr, 1 APPLIC TOP ONCE, #1 TUB Prov:SYEDA DESOUZA PA-C 11/12/16 Lactobac Cmb #3/Fos/Pantethine (PROBIOTIC & ACIDOPHILUS CAP) 1 Each Capsule, 1 EACH PO DAILY, #30 CAP Prov:TONY MCCLURE MD 09/11/16 Esomeprazole Magnesium (Nexium) 40 Mg Suspdr.pkt, 40 MG PO DAILY, #30 Prov:TONY MCCLURE MD 09/11/16 Docusate Sodium* (Colace*) 100 Mg Capsule, 100 MG PO TID, #30 CAP Prov:WHITNEY PABLO 09/04/16 Tramadol HCl (Tramadol HCl) 50 Mg Tablet, 50 MG PO Q4 Y for PAIN, #20 TAB Prov:WHITNEY PABLO 09/04/16 Polyethylene Glycol* (Miralax*) 17 Gm Powd.pack, 17 GM PO DAILY, #7 Prov:WHITNEY PABLO 09/04/16 Simethicone* (Anti-Gas/80*) 80 Mg Tab.chew, 80 MG PO Q6H Y for DISTENSION/GAS/ BLOATING for 3 Days, TAB.CHEW Prov:WHITNEY PABLO 08/23/16 Famotidine* (Pepcid*) 20 Mg Tablet, 20 MG PO BID for 4 Days, TAB Prov:WHITNEY PABLO 08/23/16 Hydrocodone/Acetaminophen ([place] 5-325 Tablet) 1 Each Tablet, 1 TAB PO Q6H Y for PAIN, #10 TAB Prov:WHITNEY PABLO 08/23/16 Ondansetron Hcl* (Zofran*) 4 Mg Tablet, 4 MG PO Q6H for NAUSEA AND/OR VOMITING, #30 TAB Prov:WHITNEY PABLO 08/23/16 Metronidazole* (Flagyl*) 500 Mg Tablet, 500 MG PO TID for 7 Days, TAB Prov:WHITNEY PABLO 08/23/16 Ciprofloxacin Hcl* (Ciprofloxacin Hcl*) 500 Mg Tablet, 500 MG PO BID for 7 Days , TAB Prov:WHITNEY PABLO 08/23/16 Lamotrigine* (Lamictal* CHEW) 25 Mg Tab.disper, 25 MG PO DAILY for 30 Days, TAB Prov:MARIAH MARTINEZ MD 10/07/15 Lamotrigine* (Lamictal*) 200 Mg Tablet, 200 MG PO DAILY, #30 TAB Prov:MARIAH MARTINEZ MD 10/07/15 Escitalopram Oxalate* (Lexapro*) 20 Mg Tablet, 40 MG PO DAILY for 30 Days, #30 TAB Prov:MARIAH MARTINEZ MD 10/07/15 Propranolol Hcl* (Propranolol Hcl*) 10 Mg Tablet, 10 MG PO BID for 30 Days, TAB Prov:MARIAH MARTINEZ MD 10/07/15 Ramipril (Ramipril) 2.5 Mg Capsule, 2.5 MG PO DAILY, #30 CAP Prov:MARIAH MARTINEZ MD 10/07/15 Hydrocodone Bit-Acetaminophen* ([place]*) 10-325 Mg Tablet, 1 TAB PO Q6 Y for PAIN , #20 TAB Prov:JULIAN MUIR DO 10/04/15 Lorazepam* (Lorazepam*) 1 Mg Tablet, 1 MG PO BID for ANXIETY, #30 TAB Prov:JULIAN MUIR DO 10/04/15 Ramipril (Ramipril) 2.5 Mg Capsule, 2.5 MG PO DAILY, #30 CAP Prov:JULIAN MUIR DO 10/04/15 Hydroxyzine Pamoate* (Vistaril*) 25 Mg Capsule, 25 MG PO Q8, #10 CAP Prov:MALINI AKINS DO 09/09/15 Albuterol Sulfate* (Proair HFA*) 8.5 Gm Hfa.aer.ad, 2 PUFF INH Q4, #1 INHALER Prov:DONALD GA PA-C 08/16/15 Ibuprofen* (Ibuprofen*) 600 Mg Tablet, 600 MG PO Q6, #20 TAB Prov:ASIA MEDLEY PA-C 03/25/15 Reported Medications Esomeprazole Mag Trihydrate (Nexium) 40 Mg Capsule.dr, 40 MG PO DAILY, CAP 12/06/14 Tiotropium [place]* (Spiriva*) 18 Mcg Cap.w.dev, 1 INH IH DAILY, EA 12/06/14 Ramipril (Ramipril) 2.5 Mg Capsule, 2.5 MG PO DAILY, CAP 12/06/14 Propranolol Hcl* (Propranolol Hcl*) 20 Mg Tablet, 20 MG PO BID, TAB 10/29/14 Lamotrigine* (Lamictal*) 100 Mg Tablet, 200 MG PO DAILY, TAB 10/29/14 Escitalopram Oxalate* (Lexapro*) 20 Mg Tablet, 20 MG PO DAILY, TAB 10/29/14 Cetirizine Hcl* (Zyrtec*) 10 Mg Capsule, 10 MG PO DAILY, TAB 08/10/14 Ascorbic Acid* (Vitamin C*) 500 Mg Capsule.sa, 500 MG PO DAILY 10/09/11 Allergies Allergies: Coded Allergies: Sulfa (Sulfonamide Antibiotics) (Verified Allergy, Intermediate, 11/01/15) sulfamethoxazole (Verified Allergy, Mild, THROAT SWELLING, 11/01/15) Penicillins (Verified Allergy, Unknown, 11/01/15) Uncoded Allergies: PCN, SULFA (Adverse Reaction, Severe, BREATHING IMPAIREMENT, 12/14/14) PMhx/Soc Anesthesia Reaction: No Hx Neurological Disorder: No Hx Respiratory Disorders: No Hx Cardiac Disorders: Yes (HTN, ARRHYTMIA) Hx Psychiatric Problems: Yes (DEPRESSION, ANXIETY) Hx Alcohol Use: No Hx Substance Use: No Hx Tobacco Use: No Physical Exam Vitals Vital Signs Date Time Temp Pulse Resp B/P Pulse Ox O2 Delivery O2 Flow Rate FiO2 11/12/16 17:26 98.1 87 18 160/89 99 Physical Exam Const: Nontoxic, well-appearing female in no acute distress. Head: Atraumatic Eyes: Normal Conjunctiva ENT: Normal External Ears, Nose and Mouth. Neck: Full range of motion..~ No meningismus. Resp: Clear to auscultation bilaterally Cardio: Regular rate and rhythm, no murmurs Abd: Soft, non tender, non distended. Normal bowel sounds Skin: There are some papules noted to bilateral upper and lower extremities but no surrounding erythema, discharge, active bleeding, or signs of cellulitis noted. Back: No midline or flank tenderness Ext: No cyanosis, or edema Neur: Awake and alert Psych: Normal Mood and Affect Procedures/MDM 46-year-old female presenting for bug bites. The patient also additionally mentioned some wheezing on exertion, consistent with her asthma. On physical examination she has some papules noted to the bilateral upper and lower extremities. Areas involved are mild. There is an approximate 10 bites noted in total. There are no signs of cellulitis. Examination of the lungs showed no wheezing, no signs of respiratory distress, no retractions, no crackles, no rhonchi, or other findings. The patient is stable for outpatient management with a prescription for permethrin. The patient has a prescription for albuterol inhaler and she was advised to continue taking this every 4 hours as needed. The bites noted are most likely bedbugs, as the patient was exposed to these, but they could be pediculosis secondary to another source. Differential diagnoses include tick bites, mosquito bites, scabies, and others. I have low suspicion for cellulitis, septicemia, acute coronary syndrome, acute respiratory distress syndrome, pulmonary embolism, pneumothorax, or other life- threatening emergencies. The patient's questions and concerns were addressed and she understood her treatment plan and diagnosis. Close follow-up with a primary care physician advised. Departure Diagnosis: Primary Impression: Pediculosis Condition: Fair Patient Instructions: Scabies Additional Instructions: Follow up with your PCP within the next 1-3 days for a repeat evaluation and a possible referral to a specialist, if required. Return the the emergency department immediately if symptoms worsen or change. If you have any questions regarding medications, ask your pharmacist or us before you leave. If any adverse reactions, occur while taking your medications, discontinue the treatment and return to the emergency department immediately. If any new or worsening symptoms, uncontrolled fevers, or other unexplained symptoms occur, return to the emergency department immediately. Take your medications as directed, and complete the entire course of treatment. SYEDA DESOUZA PA-C Nov 12, 2016 17:52
== END 2016-11-12 17:46 | disposition home or self-care (01) ==
LOC: E/R 17:24
DX: B85.2 Pediculosis, unspecified (principal); I10 Essential (primary) hypertension
CPT/HCPCS: 99283

== ENCOUNTER 2016-11-14 14:25 | Emergency (ER) | payer MEDICARE, BC ==
[~2016-11-14] VITALS: Ht 157.5 cm; Wt 90.0 kg
[~2016-11-14 14:25] MED LIST changes: +BEN25 PO; +ELIM TOP
[2016-11-14 14:58] VITALS: Ht 157.5 cm; Wt 90.0 kg
--- NOTE | 2016-11-14 15:45 | ERD ---
ER Documentation Chief Complaint Date/Time DATE: 11/14/16 TIME: 15:43 Chief Complaint pt needs medical clearance for transitional home HPI This is a 46-year-old female presents to the emergency department today requesting medical clearance to go to a transitional home. Patient states she had been seen here 2 days ago for bedbugs as she had been staying in a hotel. States she is the medication she was prescribed peer denies any current complaint ROS All systems reviewed and are negative except as per history of present illness. Medications Home Meds Active Scripts Diphenhydramine Hcl* (Benadryl*) 25 Mg Cap, 25 MG PO Q6H Y for ITCHING, #15 CAP Prov:SYEDA DESOUZA PA-C 11/12/16 Permethrin* (Elimite*) 5% Cr, 1 APPLIC TOP ONCE, #1 TUB Prov:SYEDA DESOUZA PA-C 11/12/16 Lactobac Cmb #3/Fos/Pantethine (PROBIOTIC & ACIDOPHILUS CAP) 1 Each Capsule, 1 EACH PO DAILY, #30 CAP Prov:TONY MCCLURE MD 09/11/16 Esomeprazole Magnesium (Nexium) 40 Mg Suspdr.pkt, 40 MG PO DAILY, #30 Prov:TONY MCCLURE MD 09/11/16 Docusate Sodium* (Colace*) 100 Mg Capsule, 100 MG PO TID, #30 CAP Prov:WHITNEY PABLO 09/04/16 Tramadol HCl (Tramadol HCl) 50 Mg Tablet, 50 MG PO Q4 Y for PAIN, #20 TAB Prov:WHITNEY PABLO 09/04/16 Polyethylene Glycol* (Miralax*) 17 Gm Powd.pack, 17 GM PO DAILY, #7 Prov:WHITNEY PABLO 09/04/16 Simethicone* (Anti-Gas/80*) 80 Mg Tab.chew, 80 MG PO Q6H Y for DISTENSION/GAS/ BLOATING for 3 Days, TAB.CHEW Prov:WHITNEY PABLO 08/23/16 Famotidine* (Pepcid*) 20 Mg Tablet, 20 MG PO BID for 4 Days, TAB Prov:WHITNEY PABLO 08/23/16 Hydrocodone/Acetaminophen ([place] 5-325 Tablet) 1 Each Tablet, 1 TAB PO Q6H Y for PAIN, #10 TAB Prov:WHITNEY PABLO 08/23/16 Ondansetron Hcl* (Zofran*) 4 Mg Tablet, 4 MG PO Q6H for NAUSEA AND/OR VOMITING, #30 TAB Prov:WHITNEY PABLO 08/23/16 Metronidazole* (Flagyl*) 500 Mg Tablet, 500 MG PO TID for 7 Days, TAB Prov:WHITNEY PABLO 08/23/16 Ciprofloxacin Hcl* (Ciprofloxacin Hcl*) 500 Mg Tablet, 500 MG PO BID for 7 Days , TAB Prov:WHITNEY PABLO 08/23/16 Lamotrigine* (Lamictal* CHEW) 25 Mg Tab.disper, 25 MG PO DAILY for 30 Days, TAB Prov:MARIAH MARTINEZ MD 10/07/15 Lamotrigine* (Lamictal*) 200 Mg Tablet, 200 MG PO DAILY, #30 TAB Prov:MARIAH MARTINEZ MD 10/07/15 Escitalopram Oxalate* (Lexapro*) 20 Mg Tablet, 40 MG PO DAILY for 30 Days, #30 TAB Prov:MARIAH MARTINEZ MD 10/07/15 Propranolol Hcl* (Propranolol Hcl*) 10 Mg Tablet, 10 MG PO BID for 30 Days, TAB Prov:MARIAH MARTINEZ MD 10/07/15 Ramipril (Ramipril) 2.5 Mg Capsule, 2.5 MG PO DAILY, #30 CAP Prov:MARIAH MARTINEZ MD 10/07/15 Hydrocodone Bit-Acetaminophen* ([place]*) 10-325 Mg Tablet, 1 TAB PO Q6 Y for PAIN , #20 TAB Prov:JULIAN MUIR DO 10/04/15 Lorazepam* (Lorazepam*) 1 Mg Tablet, 1 MG PO BID for ANXIETY, #30 TAB Prov:JULIAN MUIR DO 10/04/15 Ramipril (Ramipril) 2.5 Mg Capsule, 2.5 MG PO DAILY, #30 CAP Prov:JULIAN MUIR DO 10/04/15 Hydroxyzine Pamoate* (Vistaril*) 25 Mg Capsule, 25 MG PO Q8, #10 CAP Prov:MALINI AKINS DO 09/09/15 Albuterol Sulfate* (Proair HFA*) 8.5 Gm Hfa.aer.ad, 2 PUFF INH Q4, #1 INHALER Prov:DONALD GA PA-C 08/16/15 Ibuprofen* (Ibuprofen*) 600 Mg Tablet, 600 MG PO Q6, #20 TAB Prov:ASIA MEDLEY PA-C 03/25/15 Reported Medications Esomeprazole Mag Trihydrate (Nexium) 40 Mg Capsule.dr, 40 MG PO DAILY, CAP 12/06/14 Tiotropium [place]* (Spiriva*) 18 Mcg Cap.w.dev, 1 INH IH DAILY, EA 12/06/14 Ramipril (Ramipril) 2.5 Mg Capsule, 2.5 MG PO DAILY, CAP 12/06/14 Propranolol Hcl* (Propranolol Hcl*) 20 Mg Tablet, 20 MG PO BID, TAB 10/29/14 Lamotrigine* (Lamictal*) 100 Mg Tablet, 200 MG PO DAILY, TAB 10/29/14 Escitalopram Oxalate* (Lexapro*) 20 Mg Tablet, 20 MG PO DAILY, TAB 10/29/14 Cetirizine Hcl* (Zyrtec*) 10 Mg Capsule, 10 MG PO DAILY, TAB 08/10/14 Ascorbic Acid* (Vitamin C*) 500 Mg Capsule.sa, 500 MG PO DAILY 10/09/11 Allergies Allergies: Coded Allergies: Sulfa (Sulfonamide Antibiotics) (Verified Allergy, Intermediate, 11/01/15) sulfamethoxazole (Verified Allergy, Mild, THROAT SWELLING, 11/01/15) Penicillins (Verified Allergy, Unknown, 11/01/15) Uncoded Allergies: PCN, SULFA (Adverse Reaction, Severe, BREATHING IMPAIREMENT, 12/14/14) PMhx/Soc Anesthesia Reaction: No Hx Neurological Disorder: No Hx Respiratory Disorders: No Hx Cardiac Disorders: Yes (HTN, ARRHYTMIA) Hx Psychiatric Problems: Yes (DEPRESSION, ANXIETY) Hx Alcohol Use: No Hx Substance Use: No Hx Tobacco Use: No Physical Exam Vitals Vital Signs Date Time Temp Pulse Resp B/P Pulse Ox O2 Delivery O2 Flow Rate FiO2 11/14/16 14:58 98.2 84 18 140/80 96 Physical Exam Const: Pleasant, no acute distress Head: Atraumatic Eyes: Normal Conjunctiva ENT: Normal External Ears, Nose and Mouth. Neck: Full range of motion..~ No meningismus. Resp: Clear to auscultation bilaterally Cardio: Regular rate and rhythm, no murmurs Abd: Soft, non tender, non distended. Normal bowel sounds Skin: No petechiae or rashes Back: No midline or flank tenderness Ext: No cyanosis, or edema Neur: Awake and alert Psych: Normal Mood and Affect Procedures/MDM This 46-year-old female who presents to the emergency department today for medical clearance for transitional home. Patient had been seen here on October for possible bedbug infestation while staying in a hotel at the time. Patient use the permethrin cream she was prescribed as well as the Benadryl. Patient has no complaints at this time. Bites appear to be healed. She has no skin excoriations. Low suspicion for continued infection at this time. Patient was given a medical clearance note for transitional home. She was instructed to continue taking her bipolar medications as prescribed patient understood At this time the patient is stable for discharge and outpatient management. Patient should follow up with their PCP in the next 1-2 days. They may return to the emergency department sooner for any persistent or worsening of symptoms. Patient understood and agreed with the plan. Departure Diagnosis: Primary Impression: Well adult health check Condition: Fair Additional Instructions: Call your primary care doctor TOMORROW for an appointment during the next 1-2 days.See the doctor sooner or return here if your condition worsens before your appointment time. ISMAEL LEA PA-C Nov 14, 2016 15:45
== END 2016-11-14 15:47 | disposition home or self-care (01) ==
LOC: FTE 14:25
DX: Z00.00 Encounter for general adult medical examination without abnormal findings (principal); I10 Essential (primary) hypertension
CPT/HCPCS: 99282

== ENCOUNTER 2016-12-02 16:23 | Emergency (ER) | payer MEDICARE, BC ==
[~2016-12-02] VITALS: Ht 162.6 cm; Wt 88.0 kg
[~2016-12-02 16:23] MED LIST changes: -FAMO-18 PO; +FAMO-96 PO
[2016-12-02 16:27] VITALS: Ht 162.6 cm; Wt 88.0 kg
[2016-12-02] MEDS ORDERED: ALBUTEROL 0.083% (NEB) 2.5 MG/3 ML AMP NEB STA (17:10)
[2016-12-02] MEDS ORDERED: IPRATROPIUM (NEB) 0.5 MG/2.5 ML AMP NEB STA (17:10)
[2016-12-02] MEDS ORDERED: METHYLPREDNISOLONE 125 MG INJ IM ONE (18:00)
[2016-12-02 18:26] LABS: ADD SCAN DIFF NO
[2016-12-02 18:32] LABS: BASOPHIL # 0.1 10^3/ul (0.0-0.1); BASOPHILS % 0.6 % (0.0-2.0); EOSINOPHILS # 0.3 10^3/ul (0.0-0.5); EOSINOPHILS % 3.2 % (0.0-7.0); HEMATOCRIT 43.5 % (37.0-47.0); HEMOGLOBIN 15.1 g/dl (12.0-16.0); LYMPHOCYTES # 2.4 10^3/ul (0.8-2.9); MEAN CORPUSCULAR HEMOGLOBIN 31.7 pg (29.0-33.0); MEAN CORPUSCULAR HGB CONC 34.7 g/dl (32.0-37.0); MEAN CORPUSCULAR VOLUME 91.4 fl (82.0-101.0); MEAN PLATELET VOLUME 9.4 fl (7.4-10.4); MONOCYTE # 0.9 10^3/ul (0.3-0.9); MONOCYTES % 8.6 % (0.0-11.0); NEUTROPHIL # 6.2 10^3/ul (1.6-7.5); NEUTROPHILS % 62.6 % (39.0-77.0); PLATELET COUNT 303 10^3/UL (140-415); RED BLOOD COUNT 4.76 10^6/ul (4.20-5.40); WHITE BLOOD COUNT 9.8 10^3/ul (4.8-10.8)
[2016-12-02 18:51] LABS: ALANINE AMINOTRANSFERASE 31 IU/L (13-69); ALBUMIN 4.9 g/dl (3.3-4.9); ALBUMIN/GLOBULIN RATIO 1.63; ALKALINE PHOSPHATASE 81 IU/L (42-121); ANION GAP 13 (8-16); ASPARTATE AMINO TRANSFERASE 20 IU/L (15-46); BILIRUBIN,INDIRECT 0.2 mg/dl (0-1.1); BILIRUBIN,TOTAL 0.2 mg/dl (0.2-1.3); BLOOD UREA NITROGEN 5 mg/dl (7-20); CALCIUM 9.2 mg/dl (8.4-10.2); CARBON DIOXIDE 25 mmol/L (21-31); CHLORIDE 99 mmol/L (97-110); CREATININE 0.71 mg/dl (0.44-1.00); GLUCOSE 106 mg/dl (70-220); POTASSIUM 3.7 mmol/L (3.5-5.1); SODIUM 133 mmol/L (135-144); TOTAL PROTEIN 7.9 g/dl (6.1-8.1)
[2016-12-02 19:02] LABS: TROPONIN-I < 0.012 ng/ml (0.00-0.12)
[2016-12-02] MEDS ORDERED: LEVOFLOXACIN 750 MG TABLET PO STA (19:29)
--- NOTE | 2016-12-02 19:38 | ERD ---
ER Documentation Chief Complaint Date/Time DATE: 12/02/16 TIME: 19:35 Chief Complaint sob , lt side lung pain , talking in full sentnces HPI This is a 46 year old female with bipolar disorder and bronchitis presenting to the emergency department complaining of shortness of breath and chest pain for 4 days. Patient states that the pain is located on the left-side and midsternal region, no-radiating, increased when taking a deep breath or coughing. Patient admits to cough. She denies fevers, recent traveling, surgery, estrogen. She denies taking any medications for this. ROS All systems reviewed and are negative except as per history of present illness. Medications Home Meds Active Scripts Levofloxacin* (Levaquin*) 750 Mg Tablet, 750 MG PO DAILY for 4 Days, TAB Prov:WILLIAN PINEDA PA-C 12/02/16 Albuterol Sulfate* (Proair HFA*) 8.5 Gm Hfa.aer.ad, 2 PUFF INH Q4, #1 INHALER Prov:WILLIAN PINEDA PA-C 12/02/16 Prednisone* (Prednisone*) 20 Mg Tab, 40 MG PO DAILY for 4 Days, TAB Prov:WILLIAN PINEDA PA-C 12/02/16 Diphenhydramine Hcl* (Benadryl*) 25 Mg Cap, 25 MG PO Q6H Y for ITCHING, #15 CAP Prov:SYEDA DESOUZA PA-C 11/12/16 Permethrin* (Elimite*) 5% Cr, 1 APPLIC TOP ONCE, #1 TUB Prov:SYEDA DESOUZA PA-C 11/12/16 Lactobac Cmb #3/Fos/Pantethine (PROBIOTIC & ACIDOPHILUS CAP) 1 Each Capsule, 1 EACH PO DAILY, #30 CAP Prov:TONY MCCLURE MD 09/11/16 Esomeprazole Magnesium (Nexium) 40 Mg Suspdr.pkt, 40 MG PO DAILY, #30 Prov:TONY MCCLURE MD 09/11/16 Docusate Sodium* (Colace*) 100 Mg Capsule, 100 MG PO TID, #30 CAP Prov:WHITNEY PABLO 09/04/16 Tramadol HCl (Tramadol HCl) 50 Mg Tablet, 50 MG PO Q4 Y for PAIN, #20 TAB Prov:WHITNEY PABLO 09/04/16 Polyethylene Glycol* (Miralax*) 17 Gm Powd.pack, 17 GM PO DAILY, #7 Prov:WHITNEY PABLO 09/04/16 Simethicone* (Anti-Gas/80*) 80 Mg Tab.chew, 80 MG PO Q6H Y for DISTENSION/GAS/ BLOATING for 3 Days, TAB.CHEW Prov:WHITNEY PABLO 08/23/16 Famotidine* (Pepcid*) 20 Mg Tablet, 20 MG PO BID for 4 Days, TAB Prov:WHITNEY PABLO 08/23/16 Hydrocodone/Acetaminophen ([place] 5-325 Tablet) 1 Each Tablet, 1 TAB PO Q6H Y for PAIN, #10 TAB Prov:WHITNEY PABLO 08/23/16 Ondansetron Hcl* (Zofran*) 4 Mg Tablet, 4 MG PO Q6H for NAUSEA AND/OR VOMITING, #30 TAB Prov:WHITNEY PABLO 08/23/16 Metronidazole* (Flagyl*) 500 Mg Tablet, 500 MG PO TID for 7 Days, TAB Prov:WHITNEY PABLO 08/23/16 Ciprofloxacin Hcl* (Ciprofloxacin Hcl*) 500 Mg Tablet, 500 MG PO BID for 7 Days , TAB Prov:WHITNEY PABLO 08/23/16 Lamotrigine* (Lamictal* CHEW) 25 Mg Tab.disper, 25 MG PO DAILY for 30 Days, TAB Prov:MARIAH MARTINEZ MD 10/07/15 Lamotrigine* (Lamictal*) 200 Mg Tablet, 200 MG PO DAILY, #30 TAB Prov:MARIAH MARTINEZ MD 10/07/15 Escitalopram Oxalate* (Lexapro*) 20 Mg Tablet, 40 MG PO DAILY for 30 Days, #30 TAB Prov:MARIAH MARTINEZ MD 10/07/15 Propranolol Hcl* (Propranolol Hcl*) 10 Mg Tablet, 10 MG PO BID for 30 Days, TAB Prov:MARIAH MARTINEZ MD 10/07/15 Ramipril (Ramipril) 2.5 Mg Capsule, 2.5 MG PO DAILY, #30 CAP Prov:MARIAH MARTINEZ MD 10/07/15 Hydrocodone Bit-Acetaminophen* ([place]*) 10-325 Mg Tablet, 1 TAB PO Q6 Y for PAIN , #20 TAB Prov:JULIAN MUIR DO 10/04/15 Lorazepam* (Lorazepam*) 1 Mg Tablet, 1 MG PO BID for ANXIETY, #30 TAB Prov:JULIAN MUIR DO 10/04/15 Ramipril (Ramipril) 2.5 Mg Capsule, 2.5 MG PO DAILY, #30 CAP Prov:JULIAN MUIR DO 10/04/15 Hydroxyzine Pamoate* (Vistaril*) 25 Mg Capsule, 25 MG PO Q8, #10 CAP Prov:MALINI AKINS DO 09/09/15 Albuterol Sulfate* (Proair HFA*) 8.5 Gm Hfa.aer.ad, 2 PUFF INH Q4, #1 INHALER Prov:DONALD GA PA-C 08/16/15 Ibuprofen* (Ibuprofen*) 600 Mg Tablet, 600 MG PO Q6, #20 TAB Prov:ASIA MEDLEY PA-C 03/25/15 Reported Medications Esomeprazole Mag Trihydrate (Nexium) 40 Mg Capsule.dr, 40 MG PO DAILY, CAP 12/06/14 Tiotropium [place]* (Spiriva*) 18 Mcg Cap.w.dev, 1 INH IH DAILY, EA 12/06/14 Ramipril (Ramipril) 2.5 Mg Capsule, 2.5 MG PO DAILY, CAP 12/06/14 Propranolol Hcl* (Propranolol Hcl*) 20 Mg Tablet, 20 MG PO BID, TAB 10/29/14 Lamotrigine* (Lamictal*) 100 Mg Tablet, 200 MG PO DAILY, TAB 10/29/14 Escitalopram Oxalate* (Lexapro*) 20 Mg Tablet, 20 MG PO DAILY, TAB 10/29/14 Cetirizine Hcl* (Zyrtec*) 10 Mg Capsule, 10 MG PO DAILY, TAB 08/10/14 Ascorbic Acid* (Vitamin C*) 500 Mg Capsule.sa, 500 MG PO DAILY 10/09/11 Allergies Allergies: Coded Allergies: Sulfa (Sulfonamide Antibiotics) (Verified Allergy, Intermediate, 11/14/16) sulfamethoxazole (Verified Allergy, Mild, THROAT SWELLING, 11/14/16) Penicillins (Verified Allergy, Unknown, 11/14/16) Uncoded Allergies: PCN, SULFA (Adverse Reaction, Severe, BREATHING IMPAIREMENT, 12/14/14) PMhx/Soc Anesthesia Reaction: No Hx Neurological Disorder: No Hx Respiratory Disorders: No Hx Cardiac Disorders: Yes (HTN, ARRHYTMIA) Hx Psychiatric Problems: Yes (DEPRESSION, ANXIETY) Hx Alcohol Use: No Hx Substance Use: No Hx Tobacco Use: No Physical Exam Vitals Vital Signs Date Time Temp Pulse Resp B/P Pulse Ox O2 Delivery O2 Flow Rate FiO2 12/02/16 20:20 80 17 143/73 99 Room Air 12/02/16 17:33 89 20 98 21 12/02/16 16:27 97.8 89 18 136/91 96 Physical Exam GENERAL: WD/WN, in no apparent distress, non-toxic appearing HENT: NC/AT, bilateral TM has good cone of light EYES: Conjunctiva normal NECK: Supple PULM: No wheezing. No rales, crackles, or rhonchi heard. No tripod position, normal labored breathing, no stridor, no evidence of using accessory muscles. CV: Good capillary refill, good S1 and S2, no murmurs appreciated GI: Non-distended, no guarding BACK: No masses. EXT: No clubbing, cyanosis, or edema. NEURO: Moves on all fours SKIN: intact, no cyanosis. PSYCH: Normal mood Result Diagram: 12/02/16 1815 12/02/165 Results 24 hrs Laboratory Tests Test 12/02/16 18:15 White Blood Count 9.810^3/ul Red Blood Count 4.7610^6/ul Hemoglobin 15.1g/dl Hematocrit 43.5% Mean Corpuscular Volume 91.4fl Mean Corpuscular Hemoglobin 31.7pg Mean Corpuscular Hemoglobin Concent 34.7g/dl Red Cell Distribution Width 13.0% Platelet Count 94874^3/UL Mean Platelet Volume 9.4fl Neutrophils % 62.6% Lymphocytes % 24.0% Monocytes % 8.6% Eosinophils % 3.2% Basophils % 0.6% Nucleated Red Blood Cells % 0.0/100WBC Neutrophils # 6.210^3/ul Lymphocytes # 2.410^3/ul Monocytes # 0.910^3/ul Eosinophils # 0.310^3/ul Basophils # 0.110^3/ul Nucleated Red Blood Cells # 0.010^3/ul Sodium Level 133mmol/L Potassium Level 3.7mmol/L Chloride Level 99mmol/L Carbon Dioxide Level 25mmol/L Anion Gap 13 Blood Urea Nitrogen 5mg/dl Creatinine 0.71mg/dl Glucose Level 106mg/dl Calcium Level 9.2mg/dl Total Bilirubin 0.2mg/dl Direct Bilirubin 0.00mg/dl Indirect Bilirubin 0.2mg/dl Aspartate Amino Transf (AST/SGOT) 20IU/L Alanine Aminotransferase (ALT/SGPT) 31IU/L Alkaline Phosphatase 81IU/L Troponin I < 0.012ng/ml Total Protein 7.9g/dl Albumin 4.9g/dl Globulin 3.00g/dl Albumin/Globulin Ratio 1.63 Current Medications Medications (Trade) Dose Ordered Sig/Anabelle Route PRN Reason Start Time Stop Time Status Last Admin Dose Admin Albuterol (Proventil 0.083% (Neb)) 5 mg ONCE STAT NEB 12/02/16 17:10 12/02/16 17:13 DC 12/02/16 17:33 Ipratropium [place] (Atrovent 0.02% (Neb)) 1 mg ONCE STAT NEB 12/02/16 17:10 12/02/16 17:13 DC 12/02/16 17:33 Methylprednisolone Sodium Succinate (Solu-Medrol) 125 mg ONCE ONCE IM 12/02/16 18:00 12/02/16 18:01 DC 12/02/16 17:54 Levofloxacin (Levaquin) 750 mg ONCE STAT PO 12/02/16 19:29 12/02/16 19:30 DC 12/02/16 20:04 Procedures/MDM This is a 46-year-old female presenting to the emergency department complaining of shortness of breath and associated chest pain for the past 4 days, related to bronchitis. Patient is a smoker of one pack per day for the past 30 years and states that this has happened before. On examination patient was breathing well on room air, her pulse ox is 96%. Her lungs are clear to auscultation bilaterally. RT was consulted, patient was given a breathing treatment of albuterol 5 mg and Atrovent 1 mg. Patient was given 125 mg of Solu-Medrol. I have reassessed her and she significantly feels a lot better. Lab work was done in the ED, Lab work was drawn. CBC did not show any evidence of leukocytosis or anemia. CMP did not show any evidence of renal, liver, or electrolyte abnormalities. Troponin was negative. EKG was done and did not show any evidence of STEMI. Chest x-ray results Prescription Levaquin, albuterol, and prednisone was given Patient stable to be discharged home to follow-up with PCP, discussed to return to the emergency department for any worsening signs or symptoms. EKG: read and signed off by myself and Rate/Rhythm: [Normal Sinus Rhythm 79bpm] QRS, ST, T-waves: [No changes consistent w/ acute ischemia] Impression: [No evidence of ischemia or arrhythmia] Chest X-ray 1V Interpreted by me: Soft Tissue: No acute abnormalities Bones: No acute abnormalities Mediastinum/Cardiac Silhouette/Lungs: [No acute abnormalities] Departure Diagnosis: Primary Impression: Shortness of breath Additional Impression: Bronchitis Condition: Stable WILLIAN PINEDA PA-C Dec 02, 2016 19:37
--- NOTE | 2016-12-02 19:58 | RADRPT ---
PROCEDURE: Portable chest x-ray. CLINICAL INDICATION: Shortness of breath. TECHNIQUE: Portable AP view of the chest. COMPARISON: 08/16/2015. FINDINGS: No pulmonary edema or conolidation is identified. The cardiac silhouette is magnified. No pleural effusion is seen. There is no pneumothorax. IMPRESSION: 1. No evidence of acute cardiopulmonary disease. RPTAT: HTAR .Simone Morales MD, MD Date Time Electronically viewed and signed by .Simone Morales MD, on 12/02/2016 19:57 .R/
[2016-12-02] MEDS ORDERED: PRED20TA PO (20:05)
[2016-12-02] MEDS ORDERED: ALBU8.5H3 INH (20:07)
[2016-12-02] MEDS ORDERED: LEVO750T25 PO (20:08)
[2016-12-02 20:20] VITALS: BP 143/73; PULSE 80; RESP 17
== END 2016-12-02 20:21 | disposition home or self-care (01) ==
LOC: FTE 16:23
DX: R06.02 Shortness of breath (principal); J20.9 Acute bronchitis, unspecified; I10 Essential (primary) hypertension
CPT/HCPCS: 71010; 80053; 84484; 85025; 93005; 94664; J2930; 96372

== ENCOUNTER 2017-01-14 15:56 | Emergency (ER) | payer MEDICARE, BC ==
[~2017-01-14] VITALS: Ht 162.6 cm; Wt 91.0 kg
[~2017-01-14 15:56] MED LIST changes: +LEVO750T25 PO; +PRED20TA PO
[2017-01-14 16:01] VITALS: Ht 162.6 cm; Wt 91.0 kg
[2017-01-14] MEDS ORDERED: KETOROLAC 30 MG INJ IM STA (16:46)
[2017-01-14] MEDS ORDERED: LORAZEPAM 1 MG TAB PO ONE (17:00)
[2017-01-14] MEDS ORDERED: DEXAMETHASONE 10 MG/ML 1 ML INJ IM ONE (17:00)
--- NOTE | 2017-01-14 17:18 | ERD ---
ER Documentation Chief Complaint Date/Time DATE: 01/14/17 TIME: 17:13 Chief Complaint BACK PAIN , LT HIP PAIN S/P FALL , ALSO NEEDS MEDS FOR ANXIETY HPI This patient is a 46-year-old female presenting to the emergency department with complaints of left hip and left low back pain after a fall onto the shower wall which occurred 2 days ago. She rates the pain a 9 out of 10 and is constant. She reports exacerbating factors of walking. Alleviated with rest. Additionally she complains of her sister dying 2 days ago and states she is very anxious and upset and unable to sleep. She was offered case management but she declined at this time. She denies homicidal or suicidal ideation. She has been taking no medication for relief of symptoms. No loss of bowel or bladder function, no bruising, no swelling, no nausea no vomiting no diarrhea, no other symptoms reported. ROS All systems reviewed and are negative except as per history of present illness. Medications Home Meds Active Scripts Cyclobenzaprine Hcl* (Cyclobenzaprine Hcl*) 10 Mg Tablet, 10 MG PO TID, #15 TAB Prov:SYEDA DESOUZA PA-C 01/14/17 Lorazepam* (Ativan*) 0.5 Mg Tablet, 0.5 MG PO Q8, #7 TAB Prov:SYEDA DESOUZA PA-C 01/14/17 Naproxen* (Naprosyn*) 500 Mg Tablet, 500 MG PO BID Y for PAIN AND/OR INFLAMMATION, #30 TAB Prov:SYEDA DESOUZA PA-C 01/14/17 Levofloxacin* (Levaquin*) 750 Mg Tablet, 750 MG PO DAILY for 4 Days, TAB Prov:WILLIAN PINEDA PA-C 12/02/16 Albuterol Sulfate* (Proair HFA*) 8.5 Gm Hfa.aer.ad, 2 PUFF INH Q4, #1 INHALER Prov:WILLIAN PINEDA PA-C 12/02/16 Prednisone* (Prednisone*) 20 Mg Tab, 40 MG PO DAILY for 4 Days, TAB Prov:WILLIAN PINEDA PA-C 12/02/16 Diphenhydramine Hcl* (Benadryl*) 25 Mg Cap, 25 MG PO Q6H Y for ITCHING, #15 CAP Prov:SYEDA DESOUZA PA-C 11/12/16 Permethrin* (Elimite*) 5% Cr, 1 APPLIC TOP ONCE, #1 TUB Prov:SYEDA DESOUZA PA-C 11/12/16 Lactobac Cmb #3/Fos/Pantethine (PROBIOTIC & ACIDOPHILUS CAP) 1 Each Capsule, 1 EACH PO DAILY, #30 CAP Prov:TONY MCCLURE MD 09/11/16 Esomeprazole Magnesium (Nexium) 40 Mg Suspdr.pkt, 40 MG PO DAILY, #30 Prov:TONY MCCLURE MD 09/11/16 Docusate Sodium* (Colace*) 100 Mg Capsule, 100 MG PO TID, #30 CAP Prov:WHITNEY PABLO 09/04/16 Tramadol HCl (Tramadol HCl) 50 Mg Tablet, 50 MG PO Q4 Y for PAIN, #20 TAB Prov:WHITNEY PABLO 09/04/16 Polyethylene Glycol* (Miralax*) 17 Gm Powd.pack, 17 GM PO DAILY, #7 Prov:WHITNEY PABLO 09/04/16 Simethicone* (Anti-Gas/80*) 80 Mg Tab.chew, 80 MG PO Q6H Y for DISTENSION/GAS/ BLOATING for 3 Days, TAB.CHEW Prov:WHITNEY PABLO 08/23/16 Famotidine* (Pepcid*) 20 Mg Tablet, 20 MG PO BID for 4 Days, TAB Prov:WHITNEY PABLO 08/23/16 Hydrocodone/Acetaminophen ([place] 5-325 Tablet) 1 Each Tablet, 1 TAB PO Q6H Y for PAIN, #10 TAB Prov:WHITNEY PABLO 08/23/16 Ondansetron Hcl* (Zofran*) 4 Mg Tablet, 4 MG PO Q6H for NAUSEA AND/OR VOMITING, #30 TAB Prov:WHITNEY PABLO 08/23/16 Metronidazole* (Flagyl*) 500 Mg Tablet, 500 MG PO TID for 7 Days, TAB Prov:WHITNEY PABLO 08/23/16 Ciprofloxacin Hcl* (Ciprofloxacin Hcl*) 500 Mg Tablet, 500 MG PO BID for 7 Days , TAB Prov:WHITNEY PABLO 08/23/16 Lamotrigine* (Lamictal* CHEW) 25 Mg Tab.disper, 25 MG PO DAILY for 30 Days, TAB Prov:MARIAH MARTINEZ MD 10/07/15 Lamotrigine* (Lamictal*) 200 Mg Tablet, 200 MG PO DAILY, #30 TAB Prov:MARIAH MARTINEZ MD 10/07/15 Escitalopram Oxalate* (Lexapro*) 20 Mg Tablet, 40 MG PO DAILY for 30 Days, #30 TAB Prov:MARIAH MARTINEZ MD 10/07/15 Propranolol Hcl* (Propranolol Hcl*) 10 Mg Tablet, 10 MG PO BID for 30 Days, TAB Prov:MARIAH MARTINEZ MD 10/07/15 Ramipril (Ramipril) 2.5 Mg Capsule, 2.5 MG PO DAILY, #30 CAP Prov:MARIAH MARTINEZ MD 10/07/15 Hydrocodone Bit-Acetaminophen* (Minerva*) 10-325 Mg Tablet, 1 TAB PO Q6 Y for PAIN , #20 TAB Prov:JULIAN MUIR DO 10/04/15 Lorazepam* (Lorazepam*) 1 Mg Tablet, 1 MG PO BID for ANXIETY, #30 TAB Prov:JULIAN MUIR DO 10/04/15 Ramipril (Ramipril) 2.5 Mg Capsule, 2.5 MG PO DAILY, #30 CAP Prov:JULIAN MUIR DO 10/04/15 Hydroxyzine Pamoate* (Vistaril*) 25 Mg Capsule, 25 MG PO Q8, #10 CAP Prov:MALINI AKINS DO 09/09/15 Albuterol Sulfate* (Proair HFA*) 8.5 Gm Hfa.aer.ad, 2 PUFF INH Q4, #1 INHALER Prov:DONALD GA PA-C 08/16/15 Ibuprofen* (Ibuprofen*) 600 Mg Tablet, 600 MG PO Q6, #20 TAB Prov:ASIA MEDLEY PA-C 03/25/15 Reported Medications Esomeprazole Mag Trihydrate (Nexium) 40 Mg Capsule.dr, 40 MG PO DAILY, CAP 12/06/14 Tiotropium [place]* (Spiriva*) 18 Mcg Cap.w.dev, 1 INH IH DAILY, EA 7/16/15 Ramipril (Ramipril) 2.5 Mg Capsule, 2.5 MG PO DAILY, CAP 12/06/14 Propranolol Hcl* (Propranolol Hcl*) 20 Mg Tablet, 20 MG PO BID, TAB 10/29/14 Lamotrigine* (Lamictal*) 100 Mg Tablet, 200 MG PO DAILY, TAB 10/29/14 Escitalopram Oxalate* (Lexapro*) 20 Mg Tablet, 20 MG PO DAILY, TAB 10/29/14 Cetirizine Hcl* (Zyrtec*) 10 Mg Capsule, 10 MG PO DAILY, TAB 08/10/14 Ascorbic Acid* (Vitamin C*) 500 Mg Capsule.sa, 500 MG PO DAILY 10/09/11 Allergies Allergies: Coded Allergies: Sulfa (Sulfonamide Antibiotics) (Verified Allergy, Intermediate, 11/14/16) sulfamethoxazole (Verified Allergy, Mild, THROAT SWELLING, 11/14/16) Penicillins (Verified Allergy, Unknown, 11/14/16) Uncoded Allergies: PCN, SULFA (Adverse Reaction, Severe, BREATHING IMPAIREMENT, 12/14/14) PMhx/Soc History of Surgery: Yes (CYST REMOVAL ) Anesthesia Reaction: No Hx Neurological Disorder: No Hx Respiratory Disorders: No Hx Cardiac Disorders: No Hx Psychiatric Problems: Yes (BIPOLAR ) Hx Miscellaneous Medical Probl: No ( ) Hx Alcohol Use: No Hx Substance Use: No Hx Tobacco Use: Yes Smoking Status: Current every day smoker Physical Exam Vitals Vital Signs Date Time Temp Pulse Resp B/P Pulse Ox O2 Delivery O2 Flow Rate FiO2 01/14/17 16:01 98.1 96 18 133/90 96 Physical Exam Const: Nontoxic, well-appearing female in no acute distress. Head: Atraumatic Eyes: Normal Conjunctiva ENT: Normal External Ears, Nose and Mouth. Neck: Full range of motion..~ No meningismus. Resp: Clear to auscultation bilaterally Cardio: Regular rate and rhythm, no murmurs Abd: Soft, non tender, non distended. Normal bowel sounds Skin: No petechiae or rashes. No bruising noted. MSK: No bruising noted about the left hip. Full range of motion actively and passively. Subjective tenderness palpation over the lateral portion of the left hip. Back: No midline or flank tenderness. No tenderness to the paraspinal muscles of the lumbar spine. No step-offs noted. Ext: No cyanosis, or edema Neur: Awake and alert Psych: Normal Mood and Affect Results 24 hrs Current Medications Medications (Trade) Dose Ordered Sig/Anabelle Route PRN Reason Start Time Stop Time Status Last Admin Dose Admin Lorazepam (Ativan) 1 mg ONCE ONCE PO 01/14/17 17:00 01/14/17 17:08 DC 01/14/17 16:57 Dexamethasone (Decadron) 10 mg ONCE ONCE IM 01/14/17 17:00 01/14/17 17:08 DC 01/14/17 16:57 Ketorolac Tromethamine (Toradol) 30 mg ONCE STAT IM 01/14/17 16:46 01/14/17 16:47 DC 01/14/17 16:57 Procedures/MDM 46-year-old female presents secondary to complaints of low back pain, left hip pain, and anxiety after losing her sister 2 days ago. The patient is neurologically intact. There is some mild subjective tenderness to the left hip but no bruising noted. The patient has full range of motion of the left hip and she has no tenderness palpation of the low back bilaterally. I do not believe the patient requires imaging at this time because she fell against the shower wall and not to the floor, and her exam is not concerning for significant injury at this time. She denies loss of bowel or bladder function and I have low suspicion for cauda equina, epidural abscess, or other emergent conditions. She denied any homicidal or suicidal ideation and I gave her 1 mg p.o. Ativan in the department and she was feeling improved. She will be given a prescription for 7 tablets of Ativan to go home with to take only as needed for anxiety. The patient denied any chest pain, palpitations, and I have low suspicion for any cardiac etiology. Cardiac workup in the department was not indicated because exam is benign and the patient denied any cardiac complaints. She adamantly denied any homicidal or suicidal ideation. She is to follow-up closely with her primary care physician and her psychiatrist. She will also be given a prescription for muscle relaxers and naproxen for muscular pain related to her fall. Departure Diagnosis: Primary Impression: Back pain Additional Impressions: Hip pain Anxiety reaction Condition: SYEDA Esquivel PA-C Jan 14, 2017 17:13
[2017-01-14] MEDS ORDERED: LORA-441 PO (17:20)
[2017-01-14] MEDS ORDERED: CYCL-319 PO (17:20)
[2017-01-14] MEDS ORDERED: NAPR-260 PO (17:20)
== END 2017-01-14 17:28 | disposition home or self-care (01) ==
LOC: FTE 15:56
DX: S39.92XA Unspecified injury of lower back, initial encounter (principal); S79.912A Unspecified injury of left hip, initial encounter; F17.210 Nicotine dependence, cigarettes, uncomplicated; W18.2XXA Fall in (into) shower or empty bathtub, initial encounter; Y92.9 Unspecified place or not applicable
CPT/HCPCS: 96372; 99284; J1100; J1885

== ENCOUNTER 2017-02-17 15:55 | Emergency (ER) | payer MEDICARE, BC ==
[~2017-02-17] VITALS: Ht 160 cm; Wt 89.0 kg
[~2017-02-17 15:55] MED LIST changes: +CYCL-319 PO; +LORA-441 PO; +NAPR-260 PO
[2017-02-17 15:59] VITALS: Ht 160 cm; Wt 89.0 kg
[2017-02-17] MEDS ORDERED: IBUP100O10 PO (17:15)
[2017-02-17] MEDS ORDERED: SOD CHLORIDE 0.9% 1,000 ML IV STA (17:22)
[2017-02-17] MEDS ORDERED: ONDANSETRON 4 MG INJ IV STA (17:22)
[2017-02-17] MEDS ORDERED: morphine 4 MG/ML VIAL IV STA (17:22)
[2017-02-17] MEDS ORDERED: PANTOPRAZOLE 40 MG INJ IV ONE (17:30)
[2017-02-17 17:51] LABS: BASOPHIL # 0.1 10^3/ul (0.0-0.1); BASOPHILS % 0.5 % (0.0-2.0); EOSINOPHILS # 0.3 10^3/ul (0.0-0.5); EOSINOPHILS % 2.8 % (0.0-7.0); HEMATOCRIT 42.4 % (37.0-47.0); HEMOGLOBIN 14.7 g/dl (12.0-16.0); LYMPHOCYTES % 18.4 % (15.0-51.0); MEAN CORPUSCULAR HEMOGLOBIN 31.3 pg (29.0-33.0); MEAN CORPUSCULAR HGB CONC 34.7 g/dl (32.0-37.0); MEAN CORPUSCULAR VOLUME 90.2 fl (82.0-101.0); MEAN PLATELET VOLUME 9.4 fl (7.4-10.4); MONOCYTE # 0.8 10^3/ul (0.3-0.9); MONOCYTES % 7.1 % (0.0-11.0); NEUTROPHIL # 7.7 10^3/ul (1.6-7.5); NEUTROPHILS % 70.3 % (39.0-77.0); PLATELET COUNT 285 10^3/UL (140-415); RED CELL DISTRIBUTION WIDTH 12.9 % (11.5-14.5); WHITE BLOOD COUNT 10.9 10^3/ul (4.8-10.8)
[2017-02-17 18:02] LABS: ADD UMIC NO; UR ASCORBIC ACID NEGATIVE (NEGATIVE); UR BILIRUBIN (Dip) NEGATIVE (NEGATIVE); UR BLOOD (Dip) NEGATIVE (NEGATIVE); UR CLARITY CLEAR (CLEAR); UR COLOR STRAW (YELLOW); UR GLUCOSE (Dip) NEGATIVE (NEGATIVE); UR KETONES (Dip) NEGATIVE (NEGATIVE); UR LEUKOCYTE ESTERASE (Dip) NEGATIVE Leu/ul (NEGATIVE); UR NITRITE (Dip) NEGATIVE (NEGATIVE); UR SPECIFIC GRAVITY (Dip) 1.002 (1.003-1.030); UR TOTAL PROTEIN (Dip) NEGATIVE (NEGATIVE); UR UROBILINOGEN (Dip) NEGATIVE (NEGATIVE)
[2017-02-17 18:14] LABS: ALBUMIN 4.4 g/dl (3.3-4.9); ALBUMIN/GLOBULIN RATIO 1.41; BILIRUBIN,INDIRECT 0.2 mg/dl (0-1.1); BILIRUBIN,TOTAL 0.2 mg/dl (0.2-1.3); CALCIUM 9.3 mg/dl (8.4-10.2); CREATININE 0.68 mg/dl (0.44-1.00); POTASSIUM 3.9 mmol/L (3.5-5.1); TOTAL PROTEIN 7.5 g/dl (6.1-8.1)
--- NOTE | 2017-02-17 19:08 | RADRPT ---
PROCEDURE: CT abdomen and pelvis without contrast. CLINICAL INDICATION: Abdominal Pain TECHNIQUE: CT scan of the abdomen and pelvis without contrast was performed and is reconstructed a t 2.5 mm contiguous axial intervals from the dome of the diaphragm to the inferior pubic rami.. The patient was scanned without intravenous contrast. Sagittal and coronal reformatted images were obt ained from the axial source images. The calculated radiation dose measures 1211 mGy centimeters. The CTDI measures 22 mGy. Individualized dose optimization technique was used for the performance of this exam. This included 1. Automated exposure control. 2. Adjustment of the mA and / or kV according to the patient's size. 3. Use of iterative reconstructed technique. COMPARISON: CT abdomen pelvis September 04, 2016 FINDINGS: The lung bases are clear of any infiltrate or nodule. No effusion is seen. The liver is of normal size, contour and attenuation with no mass or ductal dilatation. No gallston es are visualized. No splenic, adrenal or pancreatic abnormalities present. Kidneys are of normal size and contour. No hydronephrosis, calculus or masses seen. Ureters are o f normal course and caliber with no stone. No bladder mass or stone is present. There is an enlarge d uterus with suggestion of a fibroid. This is unchanged when compared with prior study. No adnexal masses present. There is no aneurysm. No adenopathy is present. No bowel mass or obstruction is present. The appendix is normal. No phlegmon, ascites or pneumop eritoneum is visualized. The osseous structures are intact. IMPRESSION: No evidence of urolithiasis, obstructive uropathy, diverticulitis or appendicitis. Fibroid uterus para .Zachariah Paige MD, Date Time Electronically viewed and signed by .Zachariah Paige MD, on 02/17/2017 19:08 .A/
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
[2017-02-17] MEDS ORDERED: OMEP40CA6 PO (20:28)
[2017-02-17] MEDS ORDERED: NAPR-260 PO (20:28)
[2017-02-17 20:59] VITALS: BP 135/70; PULSE 73; RESP 16; TEMP 98.1
== END 2017-02-17 21:00 | disposition home or self-care (01) ==
LOC: FTE 15:55
DX: R10.84 Generalized abdominal pain (principal); F17.210 Nicotine dependence, cigarettes, uncomplicated
CPT/HCPCS: 36415; 74176; 80053; 81003; 83690; 84703; 85025; 96374; 96375; 99285; C9113; J2270; J2405; J7030

== ENCOUNTER 2017-06-24 12:49 | Emergency (ER) | END 2017-06-24 17:26 | disposition left against medical advice (07) ==

== ENCOUNTER 2017-09-12 15:45 | Emergency (ER) | END 2017-09-12 17:02 | disposition home or self-care (01) ==

== ENCOUNTER 2017-09-16 19:43 | Emergency (ER) | END 2017-09-16 23:35 | disposition home or self-care (01) ==

== ENCOUNTER 2017-11-23 03:01 | Emergency (ER) | END 2017-11-23 07:26 | disposition home or self-care (01) ==

== ENCOUNTER 2018-05-23 19:13 | Emergency (ER) | payer MEDICARE, BC ==
[~2018-05-23] VITALS: Wt 94.2 kg
[~2018-05-23 19:13] MED LIST changes: -ALBU8.5H3 INH; +ALBU8.5H8 INH; -CYCL-319 PO; +CYCL10TA7 PO; +D-ME473S2 PO; +DOXY100T20 PO; +HYDR-4011 PO; -HYDR-906 PO; -LAMO200T18 PO; +LAMO200T3 PO; -NAPR-260 PO; +NAPR-985 PO; +OMEP40CA6 PO
[2018-05-23] MEDS ORDERED: ONDANSETRON 4 MG INJ IV STA (19:33)
[2018-05-23] MEDS ORDERED: HYDROmorphONE 1 MG/ML SYG IV STA (19:33)
[2018-05-23] MEDS ORDERED: HYDR-3980 PO (21:41)
[2018-05-23] MEDS ORDERED: CIPR500T4 PO (21:41)
[2018-05-23] MEDS ORDERED: POLY17PO6 PO (21:41)
--- NOTE | 2018-05-23 21:44 | ERD ---
ER Documentation Chief Complaint Chief Complaint ABD PAIN AFTER STARTING ABX LAST WEDNESDAY HPI This is a 47-year-old female is complaining of diffuse abdominal pain since last Wednesday after starting doxycycline for lung infection. Pain is crampy and off and on. No diarrhea or vomiting no fever. She has a history of diverticulitis she states thinks it could be this. No pain in the back no hematuria or dysuria. The pain is not made any worse or better by anything ROS All systems reviewed and are negative except as per history of present illness. Medications Home Meds Active Scripts Hydrocodone/Acetaminophen ([place] 10-325 Tablet) 1 Each Tablet, 1 TAB PO Q6H PRN for PAIN, #12 TAB Prov:JULIAN MUIR DO 05/23/18 Ciprofloxacin Hcl* (Ciprofloxacin Hcl*) 500 Mg Tablet, 500 MG PO BID for 3 Days, TAB Prov:JULIAN MUIR DO 05/23/18 Polyethylene Glycol* (Miralax*) 17 Gm Powd.pack, 17 GM PO DAILY, #7 Prov:JULIAN MUIR DO 05/23/18 Dextromethorphan Hb-Promethazine Hcl* (Promethazine DM* Syrup) 473 Ml Syrup, 5 ML PO Q6 PRN for COUGH, #100 ML Prov:DONALD GA PA-C 11/23/17 Albuterol Sulfate* (Proair HFA*) 8.5 Gm Hfa.aer.ad, 2 PUFF INH Q4, #1 INHALER Prov:DONALD GA PA-C 11/23/17 Prednisone* (Prednisone*) 20 Mg Tab, 40 MG PO DAILY for 4 Days, TAB Prov:DONALD GA PA-C 11/23/17 Lorazepam* (Ativan*) 0.5 Mg Tablet, 0.5 MG PO Q8 for anxiety, #4 TAB Prov:DONALD GA PA-C 11/23/17 Tramadol HCl (Tramadol HCl) 50 Mg Tablet, 50 MG PO Q6 PRN for PAIN, #20 TAB Prov:WILLIAN PINEDA PA-C 09/16/17 Albuterol Sulfate* (Proair HFA*) 8.5 Gm Hfa.aer.ad, 2 PUFF INH Q4, #1 INHALER Prov:SAMYHANSWHITNEY C 09/12/17 Prednisone* (Prednisone*) 20 Mg Tab, 60 MG PO DAILY for 5 Days, TAB Prov:SAMYHANSWHITNEY C 09/12/17 Doxycycline Hyclate* (Doxycycline Hyclate*) 100 Mg Tablet.dr, 100 MG PO BID for 7 Days, TAB Prov:SAMYHANSWHITNEY C 09/12/17 Omeprazole* (Omeprazole*) 40 Mg Capsule.dr, 40 MG PO DAILY, #20 CAP Prov:ANDREINA,KONRAD 02/17/17 Naproxen* (Naprosyn*) 500 Mg Tablet, 500 MG PO BID PRN for PAIN AND/OR INFLAMMATION, #20 TAB Prov:ANDREINA,KONRAD 02/17/17 Cyclobenzaprine Hcl* (Cyclobenzaprine Hcl*) 10 Mg Tablet, 10 MG PO TID, #15 TAB Prov:SYEDA DESOUZA PA-C 01/14/17 Lorazepam* (Ativan*) 0.5 Mg Tablet, 0.5 MG PO Q8, #7 TAB Prov:SYEDA DESOUZA PA-C 01/14/17 Naproxen* (Naprosyn*) 500 Mg Tablet, 500 MG PO BID PRN for PAIN AND/OR INFLAMMATION, #30 TAB Prov:SYEDA DESOUZA PA-C 01/14/17 Levofloxacin* (Levaquin*) 750 Mg Tablet, 750 MG PO DAILY for 4 Days, TAB Prov:WILLIAN PINEDA PA-C 12/02/16 Albuterol Sulfate* (Proair HFA*) 8.5 Gm Hfa.aer.ad, 2 PUFF INH Q4, #1 INHALER Prov:WILLIAN PINEDA PA-C 12/02/16 Prednisone* (Prednisone*) 20 Mg Tab, 40 MG PO DAILY for 4 Days, TAB Prov:WILLIAN PINEDA PA-C 12/02/16 Diphenhydramine Hcl* (Benadryl*) 25 Mg Cap, 25 MG PO Q6H PRN for ITCHING, #15 CAP Prov:SYEDA DESOUZA PA-C 11/12/16 Permethrin* (Elimite*) 5% Cr, 1 APPLIC TOP ONCE, #1 TUB Prov:SYEDA DESOUZA PA-C 11/12/16 Lactobac Cmb #3/Fos/Pantethine (PROBIOTIC & ACIDOPHILUS CAP) 1 Each Capsule, 1 EACH PO DAILY, #30 CAP Prov:TONY MCCLURE MD 09/11/16 Esomeprazole Magnesium (Nexium) 40 Mg Suspdr.pkt, 40 MG PO DAILY, #30 Prov:TONY MCCLURE MD 09/11/16 Docusate Sodium* (Colace*) 100 Mg Capsule, 100 MG PO TID, #30 CAP Prov:WHITNEY PABLO 09/04/16 Tramadol HCl (Tramadol HCl) 50 Mg Tablet, 50 MG PO Q4 PRN for PAIN, #20 TAB Prov:WHITNEY PABLO 09/04/16 Polyethylene Glycol* (Miralax*) 17 Gm Powd.pack, 17 GM PO DAILY, #7 Prov:WHITNEY PABLO 09/04/16 Simethicone* (Anti-Gas/80*) 80 Mg Tab.chew, 80 MG PO Q6H PRN for DISTENSION/GAS/BLOATING for 3 Days, TAB.CHEW Prov:WHITNEY PABLO 08/23/16 Famotidine* (Pepcid*) 20 Mg Tablet, 20 MG PO BID for 4 Days, TAB Prov:WHITNEY PABLO 08/23/16 Hydrocodone/Acetaminophen ([place] 5-325 Tablet) 1 Each Tablet, 1 TAB PO Q6H PRN for PAIN, #10 TAB Prov:WHITNEY PABLO 08/23/16 Ondansetron Hcl* (Zofran*) 4 Mg Tablet, 4 MG PO Q6H for NAUSEA AND/OR VOMITING, #30 TAB Prov:WHITNEY PABLO 08/23/16 Metronidazole* (Flagyl*) 500 Mg Tablet, 500 MG PO TID for 7 Days, TAB Prov:WHITNEY PABLO 08/23/16 Ciprofloxacin Hcl* (Ciprofloxacin Hcl*) 500 Mg Tablet, 500 MG PO BID for 7 Days, TAB Prov:WHITNEY PABLO 08/23/16 Lamotrigine* (Lamictal* CHEW) 25 Mg Tab.disper, 25 MG PO DAILY for 30 Days, TAB Prov:MARIAH MARTINEZ MD 10/07/15 Lamotrigine* (Lamictal*) 200 Mg Tablet, 200 MG PO DAILY, #30 TAB Prov:MARIAH MARTINEZ MD 10/07/15 Escitalopram Oxalate* (Lexapro*) 20 Mg Tablet, 40 MG PO DAILY for 30 Days, #30 TAB Prov:MARIAH MARTINEZ MD 10/07/15 Propranolol Hcl* (Propranolol Hcl*) 10 Mg Tablet, 10 MG PO BID for 30 Days, TAB Prov:MARIAH MARTINEZ MD 10/07/15 Ramipril (Ramipril) 2.5 Mg Capsule, 2.5 MG PO DAILY, #30 CAP Prov:MARIAH MARTINEZ MD 10/07/15 Hydrocodone Bit-Acetaminophen* ([place]qu[place]*) 10-325 Mg Tablet, 1 TAB PO Q6 PRN for PAIN, #20 TAB Prov:JULIAN MUIR DO 10/04/15 Lorazepam* (Lorazepam*) 1 Mg Tablet, 1 MG PO BID for ANXIETY, #30 TAB Prov:JULIAN MUIR DO 10/04/15 Ramipril (Ramipril) 2.5 Mg Capsule, 2.5 MG PO DAILY, #30 CAP Prov:JULIAN MUIR DO 10/04/15 Hydroxyzine Pamoate* (Vistaril*) 25 Mg Capsule, 25 MG PO Q8, #10 CAP Prov:MALINI AKINS DO 09/09/15 Albuterol Sulfate* (Proair HFA*) 8.5 Gm Hfa.aer.ad, 2 PUFF INH Q4, #1 INHALER Prov:DONALD GA PA-C 08/16/15 Ibuprofen* (Ibuprofen*) 600 Mg Tablet, 600 MG PO Q6, #20 TAB Prov:ASIA MEDLEY PA-C 03/25/15 Reported Medications Esomeprazole Mag Trihydrate (Nexium) 40 Mg Capsule.dr, 40 MG PO DAILY, CAP 12/06/14 Tiotropium [place]* (Spiriva*) 18 Mcg Cap.w.dev, 1 INH IH DAILY, EA 12/06/14 Ramipril (Ramipril) 2.5 Mg Capsule, 2.5 MG PO DAILY, CAP 12/06/14 Propranolol Hcl* (Propranolol Hcl*) 20 Mg Tablet, 20 MG PO BID, TAB 10/29/14 Lamotrigine* (Lamictal*) 100 Mg Tablet, 200 MG PO DAILY, TAB 10/29/14 Escitalopram Oxalate* (Lexapro*) 20 Mg Tablet, 20 MG PO DAILY, TAB 10/29/14 Cetirizine Hcl* (Zyrtec*) 10 Mg Capsule, 10 MG PO DAILY, TAB 08/10/14 Ascorbic Acid* (Vitamin C*) 500 Mg Capsule.sa, 500 MG PO DAILY 10/09/11 Allergies Allergies: Coded Allergies: Sulfa (Sulfonamide Antibiotics) (Verified Allergy, Intermediate, 11/23/17) sulfamethoxazole (Verified Allergy, Mild, THROAT SWELLING, 11/23/17) Penicillins (Verified Allergy, Unknown, 11/23/17) PMhx/Soc History of Surgery: Yes (CYST REMOVAL ,eye sx) Anesthesia Reaction: No Hx Neurological Disorder: No Hx Respiratory Disorders: No (bronchitis) Hx Cardiac Disorders: No Hx Psychiatric Problems: Yes (BIPOLAR ) Hx Miscellaneous Medical Probl: No ( ) Hx Alcohol Use: No Hx Substance Use: No Hx Tobacco Use: Yes (1+ pack/ day) Smoking Status: Current every day smoker FmHx Family History: No coronary disease Physical Exam Vitals Vital Signs Date Temp Pulse Resp B/P (MAP) Pulse Ox O2 O2 Flow FiO2 Time Delivery Rate 05/23/18 97.2 100 18 156/81 96 19:17 (106) Physical Exam Const: Well-developed, well-nourished Head: Atraumatic, normocephalic Eyes: Normal Conjunctiva, PERRLA, EOMI, normal sclera, no nystagmus ENT: Normal External Ears, Nose and Mouth, moist mucus membranes. Neck: Full range of motion. No meningismus, no lymphadenopathy. Resp: Clear to auscultation bilaterally, no wheezing, rhonchi, rales Cardio: Regular rate and rhythm, no murmurs, S1 S2 present Abd: Soft, mild diffuse tenderness, non distended. Normal bowel sounds, no guarding or rebound, no pulsitile abdominal masses or bruits Skin: No petechiae or rashes, no ecchymosis , no maculopapular rash Back: No midline or flank tenderness Ext: No cyanosis, or edema, FROM x 4, normal inspection, neurovascularly intact x 4 Neur: Awake and alert, STR 5/5 x 4, sensation intact x 4, no focal findings, cerebellum intact Psych: Normal Mood and Affect Result Diagram: 05/23/18194305/23/181943 Results 24 hrs Laboratory Tests Test 05/23/18 19:44 05/23/18 19:59 White Blood Count 12.7 10^3/ul Red Blood Count 4.69 10^6/ul Hemoglobin 14.5 g/dl Hematocrit 41.8 % Mean Corpuscular Volume 89.1 fl Mean Corpuscular Hemoglobin 30.9 pg Mean Corpuscular Hemoglobin Concent 34.7 g/dl Red Cell Distribution Width 13.1 % Platelet Count 293 10^3/UL Mean Platelet Volume 9.5 fl Immature Granulocytes % 1.300 % Neutrophils % 69.5 % Lymphocytes % 20.3 % Monocytes % 7.4 % Eosinophils % 0.9 % Basophils % 0.6 % Nucleated Red Blood Cells % 0.0 /100WBC Immature Granulocytes # 0.160 10^3/ul Neutrophils # 8.8 10^3/ul Lymphocytes # 2.6 10^3/ul Monocytes # 0.9 10^3/ul Eosinophils # 0.1 10^3/ul Basophils # 0.1 10^3/ul Nucleated Red Blood Cells # 0.0 10^3/ul Sodium Level 142 mmol/L Potassium Level 3.9 mmol/L Chloride Level 103 mmol/L Carbon Dioxide Level 27 mmol/L Anion Gap 12 Blood Urea Nitrogen 9 mg/dl Creatinine 0.66 mg/dl Est Glomerular Filtrat Rate mL/min > 60 mL/min Glucose Level 166 mg/dl Calcium Level 8.9 mg/dl Total Bilirubin 0.0 mg/dl Direct Bilirubin 0.00 mg/dl Indirect Bilirubin 0.0 mg/dl Aspartate Amino Transf (AST/SGOT) 20 IU/L Alanine Aminotransferase (ALT/SGPT) 33 IU/L Alkaline Phosphatase 79 IU/L Total Protein 6.7 g/dl Albumin 4.2 g/dl Globulin 2.50 g/dl Albumin/Globulin Ratio 1.68 Lipase 69 U/L POC Beta HCG, Qualitative NEGATIVE Current Medications Medications Dose Sig/Anabelle Start Time Status Last (Trade) Ordered Route PRN Stop Time Admin Dose Reason Admin 1 mg ONCE STAT 05/23/18 DC 05/23/18 Hydromorphone IV 19:33 19:59 HCl 05/23/18 (Dilaudid) 19:34 Ondansetron 4 mg ONCE STAT 05/23/18 DC 05/23/18 HCl (Zofran IV 19:33 19:59 Inj) 05/23/18 19:34 Procedures/MDM Patient: DENVER ROMAN : 1970 Age: 47 Sex: F MR #: [id number] DOS: 05/23/18 1933 Ordering MD: JULIAN MUIR DO Location: E/R Room/Bed: PROCEDURE: CT abdomen and pelvis without contrast. CLINICAL INDICATION: Abdominal pain. TECHNIQUE: CT scan of the abdomen and pelvis without contrast was performed on a multi-slice CT scanner . Sagittal and coronal reformatted images were obtained from the axial source images. One or more of the following dose reduction techniques were used: - Automated exposure control. - Adjustment of the mA and/or kV according to patient size. - Use of iterative reconstruction technique. DICOM images are available DLP 1257.1 mGycm. CTDIvol 22.3 mGy COMPARISON: 02/17/2017 FINDINGS: Fine detail of the soft tissues is limited secondary to the lack of IV contrast. Evaluation for enhancing lesions cannot be performed. Lower thorax:The lung bases are clear. Liver: There is uniform density of the liver with no gross focal lesion. Biliary: The gallbladder is unremarkable without surrounding inflammation. No biliary dilatation. Pancreas: Homogeneous density of the pancreas without visible focal lesion or cystic abnormality. There is no pancreatic ductal dilatation. Spleen: Unremarkable without enlargement or focal lesion. Adrenal Glands: The adrenal glands are within normal limits without mass. Urinary: The kidneys are symmetric in size bilaterally. There are no visible renal or ureteral stones. There is no hydronephrosis. Gastrointestinal: There is a fecal filled colon.No evidence of bowel obstruction or inflammation. There is no appendicitis. Lymph nodes: There are no enlarged lymph nodes. Vascular: Trace vascular calcifications are present. Peritoneum/mesentery: No free fluid or free air. Reproductive organs: Uterus is retroflexed. There is heterogeneous and enlarged stable from prior exam. Follicular changes seen within the ovaries bilaterally. Musculoskeletal: There is no acute osseous abnormality. There is a trace fat containing right inguinal hernia. Degenerative changes are seen in the lumbar spine. Other: None IMPRESSION: Heterogeneous enlarged uterus appears stable which could be related to fibroids or adenomyosis. There is a fecal filled colon.No evidence of bowel obstruction or inflammation. There is no appendicitis. No renal or ureteral calculi with no evidence of hydronephrosis. There is trace fat containing right inguinal hernia. Trace aortic atherosclerotic calcifications are present. RPTAT: AA .Casa Heath MD, MD Date Time Electronically viewed and signed by .Casa Heath MD, on 05/23/2018 21:06 .J/ CC: JULIAN MUIR DO [id number] Patient has a lot of stool in her colon she is constipated. She also could be having GI upset from the doxycycline. Told her to stop it. She is requesting another antibiotic for the next 2 3 days which I will give her some Cipro for. We will give her some MiraLAX to help her evacuate her colon Patient feels much better at this time, and vital signs are normal, symptoms have improved. I did give strict instructions to return to the ED if symptoms continue or worsen, patient will otherwise follow-up with primary care physician. Patient understood instructions and agreed to plan. Disclaimer: Inadvertent spelling and grammatical errors are likely due to EHR/dictation software use and do not reflect on the overall quality of patient care. Also, please note that the electronic time recorded on this note does not necessarily reflect the actual time of the patient encounter. Departure Diagnosis: Primary Impression: Abdominal pain Abdominal location: generalized Qualified Codes: R10.84 - Generalized abdominal pain Additional Impression: Constipation Constipation type: unspecified constipation type Qualified Codes: K59.00 - Constipation, unspecified Condition: Stable Patient Instructions: Abdominal Pain, Constipation (Adult) Referrals: NO PRIMARY,CARE PHYSICIAN (PCP) JULIAN MUIR DO May 23, 2018 21:44
[2018-05-23] MEDS ORDERED: LINA72CA PO (21:53)
[2018-05-23 22:15] VITALS: BP 124/78; PULSE 78; RESP 16
== END 2018-05-23 22:15 | disposition home or self-care (01) ==
LOC: E/R 19:13
DX: K59.00 Constipation, unspecified (principal); F17.210 Nicotine dependence, cigarettes, uncomplicated
CPT/HCPCS: 36415; 74176; 80053; 81025; 83690; 85025; 96374; 96375; 99285; J1170; J2405

== ENCOUNTER 2018-11-25 07:48 | Emergency (ER) | payer MEDICARE, BC ==
[~2018-11-25] VITALS: Ht 160 cm; Wt 90.0 kg
[~2018-11-25 07:48] MED LIST changes: -ALBU8.5H8 INH; +AMLO5TAB4 PO; -ASCO500C7 PO; -BEN25 PO; -CETI10CA PO; -CIPR500T4 PO; -CYCL10TA7 PO; -D-ME473S2 PO; +DICY10CA40 PO; -DOCU-144 PO; -DOXY100T20 PO; -ELIM TOP; -ESCI20TA PO; -ESOM40CA PO; -ESOM40SU PO; +EZET10TA31 PO; -FAMO-96 PO; -HYDR-4011 PO; -HYDR-762 PO; -HYDR25CA PO; -IBUP-1542 PO; -LACT1CAP17 PO; -LAMO100T83 PO; +LAMO150T2 PO; -LAMO200T3 PO; -LAMO25TB2 PO; -LEVO750T25 PO; -LORA-441 PO; -LORA1TAB PO; +METO-319 PO; -METR500T PO; -NAPR-985 PO; -OMEP40CA6 PO; +ONDA4TAB14 PO; -ONDA4TAB8 PO; -POLY17PO6 PO; -PRED20TA PO; -PROP10TA6 PO; -PROP20TA4 PO; -SIME80TA PO; -TIOT18CA IH; -TRAM50TA2 PO; +VENL150C94 PO
[2018-11-25 08:00] VITALS: BP 156/78; PULSE 92; RESP 18; Ht 160 cm; Wt 90.0 kg
[2018-11-25] MEDS ORDERED: ALBUTEROL 0.083% (NEB) 2.5 MG/3 ML AMP HHN STA (08:53)
[2018-11-25] MEDS ORDERED: IPRATROPIUM (NEB) 0.5 MG/2.5 ML AMP HHN ONE (09:00)
[2018-11-25] MEDS ORDERED: DEXAMETHASONE 10 MG/ML 1 ML INJ IM ONE (09:00)
[2018-11-25] MEDS ORDERED: ALBU8.5H8 INH (10:09)
[2018-11-25] MEDS ORDERED: PRED20TA PO (10:09)
[2018-11-25] MEDS ORDERED: HYDR-3029 PO (10:09)
[2018-11-25] MEDS ORDERED: LORA-441 PO (10:18)
--- NOTE | 2018-11-25 10:25 | ERD ---
ER Documentation Chief Complaint Chief Complaint cough , sob x 1 week , also needs meds for anxiety , denies si/hi HPI 48-year-old female presenting with a cough for the last 2 weeks. She has some mild shortness of breath and states it is a productive cough. She has a history of pneumonia in the past and is concerned she may have symptoms returning. She denies any fevers. She does smoke about a pack a day. Allergies to sulfa and penicillin. Surgical history is left breast abscess. Drug use denies. She is also complaining of anxiety. Patient denies suicidal or homicidal ideations. she states that she just moved from a transitional house to an apartment is having difficulty sleeping given she is living alone for the first time in 17 years. ROS All systems reviewed and are negative except as per history of present illness. Medications Home Meds Active Scripts Lorazepam* (Ativan*) 0.5 Mg Tablet, 0.5 MG PO Q8, #4 TAB Prov:DONALD GA PA-C 11/25/18 Albuterol Sulfate* (Proair HFA*) 8.5 Gm Hfa.aer.ad, 2 PUFF INH Q4, #1 INHALER Prov:DONALD GA PA-C 11/25/18 Prednisone* (Prednisone*) 20 Mg Tab, 40 MG PO DAILY for 4 Days, TAB Prov:DONALD GA PA-C 11/25/18 Hydroxyzine Hcl* (Hydroxyzine Hcl*) 10 Mg Tablet, 10 MG PO Q6H PRN for ANXIETY, #30 TAB Prov:DONALD GA PA-C 11/25/18 Ondansetron (Ondansetron Odt) 4 Mg Tab.rapdis, 4 MG PO Q6H PRN for NAUSEA AND/OR VOMITING, #20 TAB Prov:MARIAH MARTINEZ MD 06/23/18 Dicyclomine HCl (Dicyclomine HCl) 10 Mg Capsule, 10 MG PO TID PRN for ABDOMINAL CRAMPING, #20 CAP Prov:MARIAH MARTINEZ MD 06/23/18 Reported Medications Ezetimibe* (Zetia*) 10 Mg Tablet, 10 MG PO HS, TAB 06/23/18 Venlafaxine Hcl* (Venlafaxine Hcl ER*) 150 Mg Cap.er.24h, 150 MG PO DAILY, CAP 06/23/18 Lamotrigine* (Lamotrigine*) 150 Mg Tablet, 300 MG PO QHS, TAB 06/23/18 Ramipril (Ramipril) 2.5 Mg Capsule, 2.5 MG PO DAILY, CAP 06/23/18 Amlodipine Besylate* (Norvasc*) 5 Mg Tablet, 5 MG PO DAILY, TAB 06/23/18 Metoprolol Succinate* (Toprol XL*) 50 Mg Tab.er.24h, 50 MG PO DAILY, #30 TAB 06/23/18 Allergies Allergies: Coded Allergies: Sulfa (Sulfonamide Antibiotics) (Verified Allergy, Intermediate, 06/23/18) sulfamethoxazole (Verified Allergy, Mild, THROAT SWELLING, 06/23/18) Penicillins (Verified Allergy, Unknown, 06/23/18) PMhx/Soc History of Surgery: Yes (CYST REMOVAL ,eye sx) Anesthesia Reaction: No Hx Neurological Disorder: No Hx Respiratory Disorders: No (bronchitis) Hx Cardiac Disorders: No Hx Psychiatric Problems: Yes (BIPOLAR ) Hx Miscellaneous Medical Probl: No ( ) Hx Alcohol Use: No Hx Substance Use: No Hx Tobacco Use: Yes (1+ pack/ day) Smoking Status: Current every day smoker FmHx Family History: No diabetes, No coronary disease, No other Physical Exam Vitals Vital Signs Date Temp Pulse Resp B/P (MAP) Pulse Ox O2 O2 Flow FiO2 Time Delivery Rate 11/25/18 92 18 94 21 09:10 11/25/18 98.2 92 18 156/78 94 08:00 (104) Physical Exam GENERAL: The patient is well-appearing, well-nourished, in no acute distress HEENT: Atraumatic. Conjunctivae are pink. Pupils equal, round, and reactive to light. There is no scleral icterus. Tympanic membranes clear bilaterally. Oropharynx clear. No nystagmus or photophobia. NECK: C-spine is soft and supple. There is no meningismus. There is no cervical lymphadenopathy. CHEST: Clear to auscultation bilaterally. There are no rales, wheezes or rhonchi. HEART: Regular rate and rhythm. No murmurs, clicks, rubs or gallops. Results 24 hrs Current Medications Medications Dose Sig/Anabelle Start Time Status Last (Trade) Ordered Route PRN Stop Time Admin Dose Reason Admin Albuterol 5 mg ONCE STAT 11/25/18 DC 11/25/18 (Proventil HHN 08:53 11/25/18 09:10 0.083% (Neb)) 08:54 Ipratropium 0.5 mg ONCE ONCE 11/25/18 DC 11/25/18 [place] HHN 09:00 11/25/18 09:10 (Atrovent 09:01 0.02% (Neb)) 10 mg ONCE ONCE 11/25/18 DC 11/25/18 Dexamethasone IM 09:00 11/25/18 09:03 (Decadron) 09:01 Procedures/MDM DIAGNOSTIC IMAGING REPORT Patient: DENVER ROMAN : 1970 Age: 48 Sex: F MR #: [id number] DOS: 11/25/18 0853 Ordering MD: OTTO GA PA-C Location: [facility] Room/Bed: PROCEDURE: XR chest. CLINICAL INDICATION: Cough TECHNIQUE: A single PA view of the chest was obtained. COMPARISON: 12/02/2016 FINDINGS: The lungs are clear. There is no pleural effusion or pneumothorax. The cardiac and mediastinal contours are within normal limits. IMPRESSION: 1. No acute pulmonary abnormality. ER course: Albuterol and Atrovent breathing treatment given in ED. Decadron given in ED. MDM: 48-year-old female presenting with a cough. I have low suspicion for pneumonia as patient's chest x-ray is within normal limits. Patient will be discharged with supportive medications and told to follow-up with primary care within 1 to 2 days for close evaluation. Patient is told symptoms change or worsen to return immediately to the ER. All questions answered at discharge Departure Diagnosis: Primary Impression: Anxiety Additional Impression: Cough Condition: Stable Patient Instructions: Anxiety Reaction, Cough, Chronic, Uncertain Cause, (Adult) Referrals: [facility] YOU HAVE RECEIVED A MEDICAL SCREENING EXAM AND THE RESULTS INDICATE THAT YOU DO NOT HAVE A CONDITION THAT REQUIRES URGENT TREATMENT IN THE EMERGENCY DEPARTMENT. FURTHER EVALUATION AND TREATMENT OF YOUR CONDITION CAN WAIT UNTIL YOU ARE SEEN IN YOUR DOCTORS OFFICE WITHIN THE NEXT 1-2 DAYS. IT IS YOUR RESPONSIBILITY TO MAKE AN APPOINTMENT FOR FOLOW-UP CARE. IF YOU HAVE A PRIMARY DOCTOR --you should call your primary doctor and schedule an appointment IF YOU DO NOT HAVE A PRIMARY DOCTOR YOU CAN CALL OUR PHYSICIAN REFERRAL HOTLINE AT IF YOU CAN NOT AFFORD TO SEE A PHYSICIAN YOU CAN CHOSE FROM THE FOLLOWING [facility] [address] [facility] [address] [facility] [address] [facility] [address] [facility] [address] [facility] [facility] [address] Additional Instructions: FOLLOW UP WITH YOUR PRIMARY CARE PHYSICIAN TOMORROW.Return to this facility if you are not improving as expected. DONALD GA PA-C Nov 25, 2018 10:25
== END 2018-11-25 10:19 | disposition home or self-care (01) ==
LOC: FTE 07:48
DX: F41.9 Anxiety disorder, unspecified (principal)
CPT/HCPCS: 71045; 94664; 96372; 99284; J1100

== ENCOUNTER 2018-12-28 00:07 | Emergency (ER) | payer MEDICARE, BC ==
[~2018-12-28] VITALS: Ht 157.5 cm; Wt 86.5 kg
[~2018-12-28 00:07] MED LIST changes: +ALBU8.5H8 INH; +HYDR-3029 PO; +LORA-441 PO; +PRED20TA PO
[2018-12-28 00:29] VITALS: BP 152/89; PULSE 98; RESP 19; Ht 157.5 cm; Wt 86.5 kg
--- NOTE | 2018-12-28 01:43 | ERD ---
ER Documentation Chief Complaint Chief Complaint bib self, cc: anxiety attack earlier today with left arm weakness,nihss neg HPI Patient is a 48-year-old female with hypertension and bipolar disorder who presents with chest pain. She says "I thought it might be anxiety". However the chest pain persisted so she took nitroglycerin. She said the chest pain is now gone. She says that her left arm feels limp and heavy however. Her symptoms started at 9 PM. She said that it started after she took hydroxyzine. She feels anxious as well. Upon review of old medical records the patient has multiple visits to the ER for various complaints. Her primary doctor is Dr. Garner. ROS All systems reviewed and are negative except as per history of present illness. Medications Home Meds Active Scripts Lorazepam* (Ativan*) 0.5 Mg Tablet, 0.5 MG PO Q8, #4 TAB Prov:DONALD GA PA-C 11/25/18 Albuterol Sulfate* (Proair HFA*) 8.5 Gm Hfa.aer.ad, 2 PUFF INH Q4, #1 INHALER Prov:DONALD GA PA-C 11/25/18 Prednisone* (Prednisone*) 20 Mg Tab, 40 MG PO DAILY for 4 Days, TAB Prov:DONALD GA PA-C 11/25/18 Hydroxyzine Hcl* (Hydroxyzine Hcl*) 10 Mg Tablet, 10 MG PO Q6H PRN for ANXIETY, #30 TAB Prov:DONALD GA PA-C 11/25/18 Ondansetron (Ondansetron Odt) 4 Mg Tab.rapdis, 4 MG PO Q6H PRN for NAUSEA AND/OR VOMITING, #20 TAB Prov:MARIAH MARTINEZ MD 06/23/18 Dicyclomine HCl (Dicyclomine HCl) 10 Mg Capsule, 10 MG PO TID PRN for ABDOMINAL CRAMPING, #20 CAP Prov:MARIAH MARTINEZ MD 06/23/18 Reported Medications Ezetimibe* (Zetia*) 10 Mg Tablet, 10 MG PO HS, TAB 06/23/18 Venlafaxine Hcl* (Venlafaxine Hcl ER*) 150 Mg Cap.er.24h, 150 MG PO DAILY, CAP 1/31/19 Lamotrigine* (Lamotrigine*) 150 Mg Tablet, 300 MG PO QHS, TAB 06/23/18 Ramipril (Ramipril) 2.5 Mg Capsule, 2.5 MG PO DAILY, CAP 06/23/18 Amlodipine Besylate* (Norvasc*) 5 Mg Tablet, 5 MG PO DAILY, TAB 06/23/18 Metoprolol Succinate* (Toprol XL*) 50 Mg Tab.er.24h, 50 MG PO DAILY, #30 TAB 06/23/18 Allergies Allergies: Coded Allergies: Sulfa (Sulfonamide Antibiotics) (Verified Allergy, Intermediate, 06/23/18) sulfamethoxazole (Verified Allergy, Mild, THROAT SWELLING, 06/23/18) Penicillins (Verified Allergy, Unknown, 06/23/18) PMhx/Soc History of Surgery: Yes (CYST REMOVAL ,eye sx) Anesthesia Reaction: No Hx Neurological Disorder: No Hx Respiratory Disorders: No (bronchitis) Hx Cardiac Disorders: No Hx Psychiatric Problems: Yes (BIPOLAR ) Hx Miscellaneous Medical Probl: No ( ) Hx Alcohol Use: No Hx Substance Use: No Hx Tobacco Use: Yes (1+ pack/ day) Smoking Status: Current every day smoker FmHx Family History: coronary disease Physical Exam Vitals Vital Signs Date Temp Pulse Resp B/P (MAP) Pulse Ox O2 O2 Flow FiO2 Time Delivery Rate 12/28/18 98.7 98 19 152/89 100 00:29 (110) Physical Exam Const: No acute distress Head: Atraumatic Eyes: Normal Conjunctiva ENT: Normal External Ears, Nose and Mouth. Neck: Full range of motion. No meningismus. Resp: Clear to auscultation bilaterally Cardio: Regular rate and rhythm, no murmurs Abd: Soft, non tender, non distended. Normal bowel sounds Skin: No petechiae or rashes Back: No midline or flank tenderness Ext: No cyanosis, or edema Neur: Awake and alert Psych: Normal Mood and Affect Procedures/MDM Chest X-ray 1V Interpreted by me: Soft Tissue: No acute abnormalities Bones: No acute abnormalities Mediastinum/Cardiac Silhouette/Lungs: No acute abnormalities EKG read by me: Rate/Rhythm: Regular rate and rhythm at a rate of 88 Intervals: Normal Impression: No evidence of ischemia or arrhythmia Smoking Cessation Therapy: Pt. was lectured for greater than 3 minutes on the health risks of continued smoking and the benefits of cessation. Patient is a 48-year-old female presents with chest pain. Chest x-ray was negative for pneumonia or pneumothorax. EKG shows no signs of ischemia. At this point I doubt acute coronary syndrome, pneumonia, pneumothorax, pulmonary embolism, or aortic dissection. I believe outpatient management is appropriate but the patient will need close follow-up with her primary doctor within 24 to 48 hours. She can return sooner for any worsening symptoms. The patient unde rstands the plan and is okay for discharge at this time. Departure Diagnosis: Primary Impression: Chest pain Chest pain type: unspecified Qualified Codes: R07.9 - Chest pain, unspecified Additional Impression: Anxiety Condition: Fair Patient Instructions: Chest Pain, Uncertain Cause Referrals: Dr. Garner Additional Instructions: Call your primary care doctor TOMORROW for an appointment during the next 1-2 days.See the doctor sooner or return here if your condition worsens before your appointment time. CARLA RAMIREZ MD Dec 28, 2018 01:43
== END 2018-12-28 01:54 | disposition home or self-care (01) ==
LOC: FTE 00:07
DX: R07.9 Chest pain, unspecified (principal); F41.9 Anxiety disorder, unspecified; F17.210 Nicotine dependence, cigarettes, uncomplicated; I10 Essential (primary) hypertension
CPT/HCPCS: 71045; 93005